=== PATIENT | male | born 1935 | race Asian ===

== ENCOUNTER 2018-01-04 16:09 | Emergency (ER) | payer OTHER ==
[2018-01-04] MEDS ORDERED: HYDROCODONE/APAP 5/325 MG TAB ONE (16:26)
[2018-01-04] MEDS ORDERED: IBUPROFEN 400 MG TAB ONE (16:29)
--- NOTE | 2018-01-04 17:42 | RAD REPORT ---
EXAM DESCRIPTION: RAD - Knee Left 3 View - 01/04/2018 5:27 pm CLINICAL HISTORY: Left knee pain FINDINGS: No fracture or dislocation is seen. Moderate osteoarthritis involves the medial compartment consisting of joint space narrowing and osteo phytes. The bones are osteoporotic.
--- NOTE | 2018-01-04 19:05 | ER ---
Nurse's Notes [facility] Name: Richard Hatch Age: 82 yrs Sex: Male : 1935 Arrival Date: 01/04/2018 Time: 16:11 Bed 15 Private MD: Diagnosis: Internal derangement of knee Presentation: 01/04 16:12 Presenting complaint: Patient states: L knee pain that began today. Only injury ss reported is after door fell onto affected leg yesterday. Transition of care: patient was not received from another setting of care. Onset of symptoms was January 04, 2018. Risk Assessment: Do you want to hurt yourself or someone else? Patient reports no desire to harm self or others. Initial Sepsis Screen: Does the patient meet any 2 criteria? No. Patient's initial sepsis screen is negative. Does the patient have a suspected source of infection? No. Patient's initial sepsis screen is negative. Care prior to arrival: None. 16:12 Method Of Arrival: EMS: [facility] ss 16:12 Acuity: JADEN 4 ss Historical: - Allergies: 16:13 No Known Allergies; ss - PMHx: 16:13 Hypertension; ss - Social history:: Smoking status: Patient/guardian denies using tobacco. - Ebola Screening: : No symptoms or risks identified at this time. Screenin:15 Abuse screen: Denies threats or abuse. Denies injuries from another. Nutritional kr2 screening: No deficits noted. Tuberculosis screening: No symptoms or risk factors identified. Fall Risk Fall in past 12 months (25 points). Assessment: 16:15 General: Appears in no apparent distress. uncomfortable, well groomed, well developed, kr2 well nourished, Behavior is calm, cooperative, appropriate for age. Pain: Complains of pain in left knee Pain currently is 6 out of 10 on a pain scale. Quality of pain is described as aching, tender, Pain began 1 day ago. Is continuous, Alleviated by nothing. Aggravated by increased activity, repositioning, weight bearing. Neuro: Level of Consciousness is awake, alert, obeys commands, Oriented to person, place, time, situation, Appropriate for age. Cardiovascular: Capillary refill < 3 seconds in bilateral fingers Patient's skin is warm and dry. Respiratory: Airway is patent Respiratory effort is even, unlabored, Respiratory pattern is regular, symmetrical. GI: Abdomen is flat, non-distended. : No signs and/or symptoms were reported regarding the genitourinary system. EENT: Oral mucosa is moist. Derm: Skin is intact, is healthy with good turgor, Skin is pink, warm \T\ dry. Musculoskeletal: Circulation, motion, and sensation intact. Range of motion: limited in left knee. 17:26 Reassessment: Patient appears in no apparent distress at this time. Patient and/or kr2 family updated on plan of care and expected duration. Pain level reassessed. Patient is alert, oriented x 3, equal unlabored respirations, skin warm/dry/pink. Patient states feeling better. 18:30 Reassessment: Patient appears in no apparent distress at this time. Patient and/or kr2 family updated on plan of care and expected duration. Pain level reassessed. Patient is alert, oriented x 3, equal unlabored respirations, skin warm/dry/pink. Patient states feeling better. 18:45 Reassessment: knee immobilizer placed by marine propulsion technician, crutches given, patient demonstrates kr2 proper use of crutches and immobilizer. 19:00 Reassessment: RECD REPORT FROM OLIVIA KELLER. 82YO AM P/W LEFT KNEE PAIN. ALL CURRENT ORDERS bp COMPLETED, D/C PENDING. 19:20 Reassessment: PT D/C HOME ON CRUTCHES, DX WITH ARTHRITIC PAIN. bp Vital Signs: 16:13 BP 148 / 78; Pulse 83; Resp 16; Pulse Ox 97% on R/A; Weight 72.57 kg; ss 16:21 Temp 97.8; kr2 17:25 BP 141 / 82; Pulse 71; Resp 16; Pulse Ox 98% on R/A; kr2 19:15 BP 145 / 81; Pulse 75; Resp 16; Pulse Ox 98% ; bp ED Course: 16:11 Patient arrived in ED. ss 16:13 Triage completed. ss 16:13 Arsenio Brooke PA is PHCP. jmm 16:13 Chauncey Ibarra MD is Attending Physician. jmm 16:13 Arm band placed on right wrist. ss 16:15 Patient has correct armband on for positive identification. Bed in low position. Call kr2 light in reach. Side rails up X 1. Pulse ox on. NIBP on. Door closed. Head of bed elevated. 16:21 Ovidio, Olivia, RN is Primary Nurse. kr2 17:28 Knee Left 3 View XRAY In Process Unspecified. EDMS 18:43 Crutch training done. Knee immobilizer applied on left knee. [facility] 19:04 Farhad Villaseñor MD is Referral Physician. [facility] 19:06 Primary Nurse role handed off by Olivia Nolan, ARIANNA 19:06 Dilan Luna, RN is Primary Nurse. bp 19:12 No provider procedures requiring assistance completed. Patient did not have IV access kr2 during this emergency room visit. Administered Medications: 16:28 Drug: Mobile 5 mg-325 mg 1 tabs Route: PO; kr2 17:27 Follow up: Response: No adverse reaction; Pain is decreased kr2 16:28 Drug: Motrin 800 mg Route: PO; kr2 17:27 Follow up: Response: No adverse reaction; Pain is decreased kr2 Outcome: 19:04 Discharge ordered by MD. [facility] 19:22 Discharged to home via wheelchair, with family. bp 19:22 Condition: stable 19:22 Discharge instructions given to patient, Instructed on discharge instructions, follow up and referral plans. medication usage, Demonstrated understanding of instructions, follow-up care, medications, Prescriptions given X 1. 19:24 Patient left the ED. bp Signatures: Dispatcher [employer] EDMS Arsenio Brooke PA PA jmm Smirch, Shelby, RN Kristal Aponte [facility] Dilan Luna, ARIANNA RN Olivia Nolan, ARIANNA RN kr2
--- NOTE | 2018-01-04 19:05 | EDPHYS ---
Physician Documentation [facility] Name: Richard Hatch Age: 82 yrs Sex: Male : 1935 Arrival Date: 01/04/2018 Time: 16:11 Bed 15 Private MD: ED Physician Chauncey Ibarra HPI: 01/04 16:21 This 82 yrs old Male presents to ER via EMS with complaints of Knee Pain. jmm 16:21 The patient presents with pain, that is chronic. The complaints affect the left knee. jmm Onset: The symptoms/episode began/occurred gradually, 2 day(s) ago. This is a 82 year old male with a history of htn that presents to the ED with left knee pain. Patient states he was working in his yard yesterday and also states he ran into a door. Patient states he has had progressively worsen left knee pain since. Patient denies fever. Patient states having similar pain in the past with a gout flare. . Historical: - Allergies: 16:13 No Known Allergies; ss - PMHx: 16:13 Hypertension; ss - Social history:: Smoking status: Patient/guardian denies using tobacco. - Ebola Screening: : No symptoms or risks identified at this time. ROS: 16:21 Constitutional: Negative for fever, chills, and weight loss. jmm 16:21 MS/extremity: Positive for pain, tenderness. 16:21 All other systems are negative. Exam: 16:21 Constitutional: The patient appears in no acute distress, alert, awake. jmm 16:26 Constitutional: This is a well developed, well nourished patient who is awake, alert, jmm and in no acute distress. 16:26 Neck: ROM/movement: is normal. 16:26 Cardiovascular: Rate: normal. 16:26 Respiratory: the patient does not display signs of respiratory distress, Respirations: normal. 16:26 Musculoskeletal/extremity: pain is elicited on rom of the left knee, patient is able to flex and extend knee, pain on mcmurrays, full dorsalis pedis pulse, compartments are soft, NVI. 16:26 Skin: Appearance: Color: normal in color. 16:26 Neuro: Orientation: is normal, Mentation: is normal, Memory: is normal. Vital Signs: 16:13 BP 148 / 78; Pulse 83; Resp 16; Pulse Ox 97% on R/A; Weight 72.57 kg; ss 16:21 Temp 97.8; kr2 17:25 BP 141 / 82; Pulse 71; Resp 16; Pulse Ox 98% on R/A; kr2 19:15 BP 145 / 81; Pulse 75; Resp 16; Pulse Ox 98% ; bp MDM: 16:[address] [facility] 16:28 Data reviewed: vital signs, nurses notes. [facility] 19:04 Counseling: I had a detailed discussion with the patient and/or guardian regarding: the [facility] historical points, exam findings, and any diagnostic results supporting the discharge/admit diagnosis, radiology results, the need for outpatient follow up, to return to the emergency department if symptoms worsen or persist or if there are any questions or concerns that arise at home. 19:05 Response to treatment: the patient's symptoms have markedly improved after treatment. [facility] 01/04 16:20 Order name: Knee Left 3 View XRAY; Complete Time: 17:55 [facility] 01/04 17:56 Order name: Knee Immobilizer; Complete Time: 18:42 [facility] 01/04 18:44 Order name: Crutches; Complete Time: 18:45 [facility] Administered Medications: 16:28 Drug: [place] 5 mg-325 mg 1 tabs Route: PO; kr2 17:27 Follow up: Response: No adverse reaction; Pain is decreased kr2 16:28 Drug: Motrin 800 mg Route: PO; kr2 17:27 Follow up: Response: No adverse reaction; Pain is decreased kr2 Disposition: 01/05 07:00 Co-signature as Attending Physician, Chauncey Ibarra MD. rn Disposition: 01/04/18 19:04 Discharged to Home. Impression: Internal derangement of knee. - Condition is Stable. - Discharge Instructions: Knee Pain. - Prescriptions for Ibuprofen 800 mg Oral Tablet - take 1 tablet by ORAL route every 8 hours As needed take with food; 30 tablet. - Medication Reconciliation Form, Thank You Letter, Antibiotic Education, Prescription Opioid Use form. - Follow up: Farhad Villaseñor MD; When: As needed; Reason: Continuance of care. Signatures: Dispatcher [employer] EDMS Arsenio Brooke PA PA [facility] Chauncey Ibarra MD MD rn Smirch, Shelby, RN RN Kristal Whittaker [facility] Dilan Luna RN RN Olivia Nolan RN RN kr2 Corrections: (The following items were deleted from the chart) 01/04 16:26 16:21 This is a 82 year old male with a history of htn that presents to the ED with jmm left knee pain. Patient states he was working in his yard yesterday and also states he ran into a door. Patient states he has had progressively worsen left knee pain since. Patient denies fever. . [facility] 19:24 19:04 01/04/2018 19:04 Discharged to Home. Impression: Internal derangement of knee. bp Condition is Stable. Forms are Medication Reconciliation Form, Thank You Letter, Antibiotic Education, Prescription Opioid Use. Follow up: Farhad Villaseñor; When: As needed; Reason: Continuance of care. ben
[2018-01-04 19:29] VITALS: TEMP 97.8
[2018-01-04 19:30] VITALS: O2SAT 98
[2018-01-04 19:31] VITALS: BP 145/81
== END 2018-01-04 19:24 | disposition home or self-care (01) ==
LOC: ER 16:09
DX: M23.92 Unspecified internal derangement of left knee (principal); I10 Essential (primary) hypertension
CPT/HCPCS: 99284

== ENCOUNTER 2018-06-18 09:49 | Day surgery (SDC) | payer OTHER ==
[2018-06-18] MEDS ORDERED: NA CHLORIDE 0.9% 1,000 ML ONE (10:06)
[2018-06-18] MEDS ORDERED: LIDOCAINE 1% MPF 5 ML VIAL ONE (12:05)
[2018-06-18] MEDS ORDERED: PROPOFOL 200 MG/20 ML VIAL IV ONE (12:05)
[2018-06-18 12:33] VITALS: BP 97/61; TEMP 97.6; O2SAT 99
--- NOTE | 2018-06-18 14:00 | ENDO RPT ---
[address], [address] EGD PROCEDURE REPORT EXAM DATE: 06/18/2018 PATIENT NAME: Richard Hatch MR#: [id number] BIRTHDATE: 1935 ATTENDING: Cameron Baca Dr STATUS: outpatient NURSING HOME ASSISTANT: Merced Arroyo, Miya Mantilla RN, and Dana Arroyo INDICATIONS: The patient is a 82 yr old Male here for an EGD due to dyspepsia PROCEDURE PERFORMED: EGD with biopsy MEDICATIONS: Per Anesthesia. TOPICAL ANESTHETIC: none CONSENT: The patient understands the risks and benefits of the procedure and understands that these risks include, but are not limited to: sedation, allergic reaction, infection, perforation and/or bleeding. Alternative means of evaluation and treatment include, among others: physical exam, x-rays, and/or surgical intervention. The patient elects to proceed with this endoscopic procedure. DESCRIPTION OF PROCEDURE: During intra-op preparation period all mechanical medical equipment was checked for proper function. Hand hygiene and appropriate measures for infection prevention was taken. Procedure, possible complications, and alternatives including but not limited to the possibility of bleeding, perforation, tear, infection, sepsis, need for surgery, need for blood transfusion, and anesthesia related complications were explained to the patient. After the risks, benefits and alternatives of the procedure were thoroughly explained, Informed consent was verified, confirmed and timeout was successfully executed by the treatment team. The patient was placed in the left lateral position. The patient was anesthetized with topical anesthesia. Through the anesthetized oropharyngeal area, the scope was passed without any difficulty. The EG-[id number] ([id number]) endoscope was introduced through the mouth and advanced to the second portion of the duodenum. Retroflexed views revealed a small hiatal hernia. The gastroscope was then slowly withdrawn and removed. LA Class B esophagitis was found in the lower esophagus. 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 With standard forceps, a biopsy was obtained and sent to pathology. A small hiatal hernia was found Mild gastritis was found in the antrum. Multiple biopsies were obtained and sent to pathology. A 1 cm ulcer with crater was found in the antrum. With standard forceps, a biopsy was obtained and sent to pathology. Duodenitis was found in the bulb of the duodenum. ADVERSE EVENTS: There were no complications. IMPRESSIONS: 1. LA Class B esophagitis in the lower esophagus 2. 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 Small hiatal hernia 4. Mild gastritis in the antrum, s/p biopsies 5. 1 cm ulcer with dark heme / crater in the antrum 6. Duodenitis in the bulb of the duodenum RECOMMENDATIONS: 1. await biopsy results 2. acid suppression therapy REPEAT EXAM: Return in 3 month(s) for EGD. Cameron Baca Dr eSigned: Cameron Baca Dr 06/18/2018 1:00 PM cc: Vivienne Pleitez CPT CODES: ICD9 CODES: PATIENT NAME: Richard Hatch MR#: [id number]
== END 2018-06-18 13:20 | disposition home or self-care (01) ==
LOC: OR 09:49
PROVIDERS: ATTEND Internal Medicine Gastroenterology
PROC: 0DB78ZX Excision of Stomach, Pylorus, Via Natural or Artificial Opening Endoscopic, Diagnostic (ICD-10-PCS; 2018-06-18)
PROC: 0DB68ZX Excision of Stomach, Via Natural or Artificial Opening Endoscopic, Diagnostic (ICD-10-PCS; 2018-06-18)
PROC: 0DB38ZX Excision of Lower Esophagus, Via Natural or Artificial Opening Endoscopic, Diagnostic (ICD-10-PCS; principal; 2018-06-18 11:45)
DX: K29.70 Gastritis, unspecified, without bleeding (principal); M19.90 Unspecified osteoarthritis, unspecified site; E11.9 Type 2 diabetes mellitus without complications; M10.9 Gout, unspecified; E78.5 Hyperlipidemia, unspecified; I10 Essential (primary) hypertension; Z86.711 Personal history of pulmonary embolism; K20.9 Esophagitis, unspecified; K22.70 Barrett's esophagus without dysplasia; K44.9 Diaphragmatic hernia without obstruction or gangrene; K29.80 Duodenitis without bleeding
CPT/HCPCS: 43239; 82962; 88305; 88312; 88313; J2704; J7030

== ENCOUNTER 2023-06-02 17:41 | Emergency (ER) | payer OTHER, SELFPAY ==
--- OUTSIDE RECORDS SUMMARY | 2023-06-02 17:44 | XMS REPORT | Continuity of Care Document ---
:1935 Author Organization [facility] t Address [address] [place] [id number] Care Team Providers Name Role Phone Sandra Pleitez Attending Clinician Unavailable Problems This patient has no known problems. Allergies, Adverse Reactions, Alerts This patient has no known allergies or adverse reactions. Medications This patient has no known medications. Procedures This patient has no known procedures. Encounters Start End Encounter Admission Attending Care Care Encounter Source Date/Time Date/Time Type Type Clinicians Facility Department ID 2021[facility]09[id number]36:03 Sandra [facility] Results This patient has no known results.
--- NOTE | 2023-06-02 19:25 | RAD REPORT ---
EXAM DESCRIPTION: RAD - Hand Left 3 View - 06/02/2023 7:17 pm CLINICAL HISTORY: Pain;Swelling COMPARISON: No comparisons FINDINGS: Diffuse osteopenia is seen. Moderate soft tissue swelling is evident. Moderate multi joint arthritic changes are noted. No acute fracture or dislocation seen.
--- NOTE | 2023-06-02 19:29 | ER ---
Nurse's Notes [facility] Name: Richard Hatch Age: 87 yrs Sex: Male : 1935 Arrival Date: 06/02/2023 Time: 17:41 Bed 16 Private MD: Diagnosis: Other specified arthritis Presentation: 06/02 17:51 Chief complaint: Patient states: carrying orange juice in a bag and his left hand ko1 swelled up. I had it wrapped too tight and i soaked it in ice water for 10 minutes. Coronavirus screen: At this time, the client does not indicate any symptoms associated with coronavirus-19. Ebola Screen: No symptoms or risks identified at this time. Initial Sepsis Screen: Does the patient meet any 2 criteria? No. Patient's initial sepsis screen is negative. Does the patient have a suspected source of infection? No. Patient's initial sepsis screen is negative. Risk Assessment: Do you want to hurt yourself or someone else? Patient reports no desire to harm self or others. Onset of symptoms was May 30, 2023. 17:51 Method Of Arrival: Wheelchair ko1 17:51 Acuity: JADEN 4 ko1 Triage Assessment: 17:53 General: Appears in no apparent distress. uncomfortable, Behavior is calm, cooperative, ko1 appropriate for age. Pain: Complains of pain in left hand. Historical: - Allergies: 17:53 No Known Allergies; ko1 - PMHx: 17:53 Atrial fibrillation; Hypertension; Diabetes mellitus; ko1 - Immunization history:: Adult Immunizations unknown. - Social history:: Smoking status: Patient/guardian denies using tobacco, but has a distant history of tobacco abuse. Screenin:09 [facility] ED Fall Risk Assessment (Adult) History of falling in the last 3 months, bp including since admission No falls in past 3 months (0 pts). Abuse screen: Denies threats or abuse. Denies injuries from another. Nutritional screening: No deficits noted. Tuberculosis screening: No symptoms or risk factors identified. Vital Signs: 17:51 BP 128 / 77; Pulse 77; Resp 16; Temp 97.6; Pulse Ox 100% ; Weight 72.5 kg; bp 20:09 BP 131 / 69; Pulse 75; Resp 16; Pulse Ox 99% ; bp ED Course: 17:44 Patient arrived in ED. mg5 17:52 Callaway, Lisa, [employer] snw 17:52 Agatha Foley MD is Attending Physician. snw 17:53 Triage completed. ko1 17:53 Arm band placed on right wrist. Patient placed in waiting room, Patient notified of ko1 wait time. 19:19 Hand Left 3 View XRAY In Process Unspecified. EDMS 19:20 Dilan Luna, RN is Primary Nurse. bp 20:09 Patient has correct armband on for positive identification. Adult w/ patient. Provided bp Education on: N/A. 20:09 No provider procedures requiring assistance completed. Patient did not have IV access bp during this emergency room visit. Administered Medications: 19:20 Drug: HYDROcodone-acetaminophen PO 5 mg-325 mg 1 tabs PO once Route: PO; bp 20:07 Follow up: Response: No adverse reaction bp 19:20 Drug: Colcrys PO 1.2 mg PO once Route: PO; bp 20:07 Follow up: Response: No adverse reaction bp Medication: 20:09 VIS not applicable for this client. bp Outcome: 19:29 Discharge ordered by . snw 20:09 Discharged to home via wheelchair, with family, bp 20:09 Condition: stable 20:09 Discharge instructions given to patient, family, Instructed on discharge instructions, follow up and referral plans. medication usage, Demonstrated understanding of instructions, follow-up care, medications, Prescriptions given X 1, 20:11 Patient left the ED. bp Signatures: Dispatcher [employer] EDMS Lisa Callaway FNP-C [employer]-[facility] Dilan Luna RN RN bp Sushma Brennan RN RN ko1 Syeda Lawrence mg5 Corrections: (The following items were deleted from the chart) 19:48 17:51 BP 128 / 77; Pulse 77bpm; Resp 16bpm; Pulse Ox 100%; Temp 97.6F; ko1 bp
--- NOTE | 2023-06-02 19:29 | EDPHYS ---
Physician Documentation [facility] Name: Richard Hatch Age: 87 yrs Sex: Male : 1935 Arrival Date: 06/02/2023 Time: 17:41 Bed 16 Private MD: ED Physician Agatha Foley HPI: 06/02 18:56 This 87 yrs old Male presents to ER via Wheelchair with complaints of Hand snw Swelling. 18:56 The patient or guardian reports pain, swelling. The complaints affect the PIP of left snw ring finger and PIP of left index finger. Onset: The symptoms/episode began/occurred acutely. Associated signs and symptoms: The patient has no apparent associated signs or symptoms. It is unknown whether or not the patient has had similar symptoms in the past. Historical: - Allergies: 17:53 No Known Allergies; ko1 - PMHx: 17:53 Atrial fibrillation; Hypertension; Diabetes mellitus; ko1 - Immunization history:: Adult Immunizations unknown. - Social history:: Smoking status: Patient/guardian denies using tobacco, but has a distant history of tobacco abuse. ROS: 18:55 Constitutional: Negative for fever, chills, and weight loss, Eyes: Negative for injury, snw pain, redness, and discharge, ENT: Negative for injury, pain, and discharge, Neck: Negative for injury, pain, and swelling, Cardiovascular: Negative for chest pain, palpitations, and edema, Respiratory: Negative for shortness of breath, cough, wheezing, and pleuritic chest pain, Abdomen/GI: Negative for abdominal pain, nausea, vomiting, diarrhea, and constipation, Back: Negative for injury and pain, : Negative for injury, bleeding, discharge, and swelling, Skin: Negative for injury, rash, and discoloration, Neuro: Negative for headache, weakness, numbness, tingling, and seizure, Psych: Negative for depression, anxiety, suicide ideation, homicidal ideation, and hallucinations, 18:55 MS/extremity: Positive for decreased range of motion, pain, swelling, tenderness, of the dorsal aspect of middle phalanx of left index finger and dorsal aspect of middle phalanx of left ring finger, Exam: 18:51 Constitutional: This is a well developed, well nourished patient who is awake, alert, snw and in no acute distress. Head/Face: Normocephalic, atraumatic. Eyes: Pupils equal round and reactive to light, extra-ocular motions intact. Lids and lashes normal. Conjunctiva and sclera are non-icteric and not injected. Cornea within normal limits. Periorbital areas with no swelling, redness, or edema. ENT: Nares patent. No nasal discharge, no septal abnormalities noted. Tympanic membranes are normal and external auditory canals are clear. Oropharynx with no redness, swelling, or masses, exudates, or evidence of obstruction, uvula midline. Mucous membranes moist. Neck: Trachea midline, no thyromegaly or masses palpated, and no cervical lymphadenopathy. Supple, full range of motion without nuchal rigidity, or vertebral point tenderness. No Meningismus. Chest/axilla: Normal chest wall appearance and motion. Nontender with no deformity. No lesions are appreciated. Cardiovascular: Regular rate and rhythm with a normal S1 and S2. No gallops, murmurs, or rubs. Normal PMI, no JVD. No pulse deficits. Respiratory: Lungs have equal breath sounds bilaterally, clear to auscultation and percussion. No rales, rhonchi or wheezes noted. No increased work of breathing, no retractions or nasal flaring. Abdomen/GI: Soft, non-tender, with normal bowel sounds. No distension or tympany. No guarding or rebound. No evidence of tenderness throughout. Back: No spinal tenderness. No costovertebral tenderness. Full range of motion. Skin: Warm, dry with normal turgor. Normal color with no rashes, no lesions, and no evidence of cellulitis. Neuro: Awake and alert, GCS 15, oriented to person, place, time, and situation. Cranial nerves II-XII grossly intact. Motor strength 5/5 in all extremities. Sensory grossly intact. Cerebellar exam normal. Normal gait. Psych: Awake, alert, with orientation to person, place and time. Behavior, mood, and affect are within normal limits. 18:51 Musculoskeletal/extremity: Extremities: grossly normal except: noted in the left hand: contusion, swelling, tenderness, ROM: limited active range of motion due to pain, limited passive range of motion due to pain, left 2nd finger PIJ with tenderness, edema, and warmth, Circulation is intact in all extremities. Sensation intact. Vital Signs: 17:51 BP 128 / 77; Pulse 77; Resp 16; Temp 97.6; Pulse Ox 100% ; Weight 72.5 kg; bp 20:09 BP 131 / 69; Pulse 75; Resp 16; Pulse Ox 99% ; bp MDM: 18:42 Patient medically screened. snw 18:57 Differential diagnosis: contusion, abrasion, tendonitis. Data reviewed: vital signs, snw nurses notes. I considered the following discharge prescriptions or medication management in the emergency department Medications were administered in the Emergency Department. See MAR. Historians other than the Patient: Family Member: grandchildren. Counseling: I had a detailed discussion with the patient and/or guardian regarding the historical points, exam findings, and any diagnostic results supporting the discharge/admit diagnosis, radiology results, the need for outpatient follow up, to return to the emergency department if symptoms worsen or persist or if there are any questions or concerns that arise at home. 06/02 18:51 Order name: Hand Left 3 View XRAY; Complete Time: 19:27 snw Administered Medications: 19:20 Drug: HYDROcodone-acetaminophen PO 5 mg-325 mg 1 tabs PO once Route: PO; bp 20:07 Follow up: Response: No adverse reaction bp 19:20 Drug: Colcrys PO 1.2 mg PO once Route: PO; bp 20:07 Follow up: Response: No adverse reaction bp Disposition Summary: 06/02/23 19:29 Discharge Ordered Notes: Location: Home snw Condition: Stable snw Diagnosis - Other specified arthritis snw Followup: snw - With: Emergency Department - When: As needed - Reason: Worsening of condition Followup: snw - With: Private Physician - When: 2 - 3 days - Reason: Recheck today's complaints, Continuance of care, Re-evaluation by your physician Discharge Instructions: - Discharge Summary Sheet snw - Arthritis snw - Osteoarthritis snw - Hand Pain snw Forms: - Medication Reconciliation Form snw - Thank You Letter snw - Antibiotic Education snw - Prescription Opioid Use snw - Patient Portal Instructions snw - Leadership Thank You Letter snw Prescriptions: - Mobic 7.5 mg Oral tablet - take 1 tablet ORAL route once daily As needed take with food; 20 tablet; snw Refills: 0, Product Selection Permitted Signatures: Dispatcher [employer] Lisa Goldberg FNP-C FNP-Csnw Dilan Luna, RN RN bp Sushma Brennan RN RN ko1 Corrections: (The following items were deleted from the chart) 19:14 18:19 Hand Right 3 View+RAD.RAD.BRZ ordered. EDMS EDMS
[2023-06-02] MEDS ORDERED: COLCHICINE 0.6 MG TAB ONE (19:42)
[2023-06-02] MEDS ORDERED: HYDROCODONE/APAP 5/325 MG TAB ONE (19:43)
[2023-06-02 20:17] VITALS: TEMP 97.6
[2023-06-02 20:18] VITALS: BP 131/69; O2SAT 99
== END 2023-06-02 20:11 | disposition home or self-care (01) ==
LOC: ER 17:41
DX: M13.842 Other specified arthritis, left hand (principal)
CPT/HCPCS: 99283

== ENCOUNTER 2024-05-01 14:42 | Emergency (ER) | payer OTHER ==
--- OUTSIDE RECORDS SUMMARY | 2024-05-01 14:45 | XMS REPORT | Continuity of Care Document ---
Author Name Unknown Address [address] [place] [address] [employer] Address [address] [place] [address] [address] [place] [address] Care Team Providers Care Mental Health Program Specialist Name Role Phone Sandra Pleitez Attending Clinician Unavailable Encounters Start Date/Time End Date/Time Encounter Type Admission Type Attending Clinicians Care Facility Care Department Encounter ID Source 2021-09-12 08:36:03 Outpatient Sandra Pleitez [facility] [id number] [facility]
[2024-05-01] MEDS ORDERED: NA CHLORIDE 0.9% 500 ML ONE ×3 (15:24→18:05)
[2024-05-01] MEDS ORDERED: NA CHLORIDE 0.9% 100 ML ONE (17:03)
--- NOTE | 2024-05-01 17:03 | RAD REPORT ---
EXAMINATION: ONE VIEW CHEST XR CLINICAL INDICATION: Male, 88 years old.,altered mental status TECHNIQUE: Frontal chest projection is submitted. Examination is limited by patient positioning and t echnique. COMPARISON: 08/04/2015 FINDINGS: The lungs are well inflated and clear, apart from bilateral midlung linear peripheral opacity suggest ing atelectasis or scarring. No pneumothorax or sizable effusion. The heart is normal in size. IMPRESSION: No acute intrathoracic abnormalities. Findings as above.
[2024-05-01] MEDS ORDERED: PIPERACIL/TAZO 3.375 GM VIAL IV ONE (17:04)
[2024-05-01 17:10] LABS: Specific Gravity 1.021 (1.005-1.030); Sqamous Epithelial <5 /HPF (None Seen); Urine Bacteria <20 /HPF (<20); Urine Bilirubin NEGATIVE (Negative); Urine Blood Negative (Negative); Urine Clarity Extremely Turbid (Clear); Urine Color Light-Yellow (Yellow); Urine Culture Reflex Order NOT NEEDED; Urine Glucose NEGATIVE (Negative); Urine Ketones TRACE (Negative); Urine Microscopic Reflex YN ORDER UMIC; Urine Mucus Slight /HPF (None Seen); Urine Nitrite NEGATIVE (Negative); Urine Protein TRACE (Negative); Urine RBC <5 /HPF (None Seen); Urine Urobilinogen Normal (Normal); Urine WBC <5 /HPF (<5)
[2024-05-01 17:13] LABS: Albumin 2.9 g/dL (3.4-5.0); Albumin/Globulin Ratio 0.6 (1.1-1.8); Anion Gap 21.9 mEq/L (5.0-15.0); Bilirubin Total 0.3 mg/dL (0.2-1.0); Globulin 4.6 g/dL (2.3-3.5); Protein, Total 7.5 g/dL (6.4-8.2); Troponin High Sensitivity 26.8 pg/mL (<58.9)
[2024-05-01 17:15] LABS: Absolute Lymphocytes (CBC) 0.6 K/uL (0.7-4.9); Absolute Monocytes 0.6 K/uL (0.1-1.3); Absolute Neutrophil 10.5 K/uL (1.8-8.0); Basophils % 0.2 % (0-1.3); Hematocrit 16.7 % (39.6-49.0); Lymphocytes % 5.4 % (15.3-44.8); MCH 27.1 pg (27.0-35.0); MCHC 30.8 g/dL (32.0-36.0); MCV 88.1 fL (80-100); MPV 7.1 fL (7.6-11.3); Monocytes % 5.2 % (3.3-12.3); Neutrophils % 89.2 % (41.7-73.7); Platelets 284 thou/uL (152-406); Red Cell Distribution Width 15.8 % (12.1-15.2)
[2024-05-01 17:20] LABS: Hemoglobin 5.1 g/dL (13.6-17.9)
[2024-05-01 17:22] LABS: Potassium 6.9 mEq/L (3.5-5.1)
[2024-05-01 17:23] LABS: PT Prothrombin Time 14.1 SECONDS (9.4-12.5); PTT, Activated Partial Thromb 30.1 SECONDS (24.3-36.9); Protime INR 1.27
[2024-05-01 17:27] LABS: Barbiturates NEGATIVE (NEGATIVE); Benzodiazepines NEGATIVE (NEGATIVE); Cocaine NEGATIVE (NEGATIVE); METHAMPHETAM NEGATIVE (NEGATIVE); Methadone NEGATIVE (NEGATIVE); Opiates NEGATIVE (NEGATIVE); Phencyclidine NEGATIVE (NEGATIVE); THC Cannibis NEGATIVE (NEGATIVE)
--- NOTE | 2024-05-01 18:01 | ER ---
Nurse's Notes [facility] Name: Richard Hatch Age: 88 yrs Sex: Male : 1935 Arrival Date: 05/01/2024 Time: 14:42 Bed 17 Private MD: Diagnosis: Anemia, unspecified;GI Bleed/ Gastrointestinal hemorrhage, unspecified;Hyperkalemia;Acute kidney failure, unspecified Presentation: 05/01 15:06 Chief complaint: EMS states: n/v/d most of today with recent dark stools. lowest BP for [facility] was 84/40. BGL 248. Coronavirus screen: At this time, the client does not indicate any symptoms associated with coronavirus-19. Ebola Screen: No symptoms or risks identified at this time. Initial Sepsis Screen: Does the patient meet any 2 criteria? Mean Arterial Pressure (MAP) < 65. Does the patient have a suspected source of infection? No. Patient's initial sepsis screen is negative. Risk Assessment: Do you want to hurt yourself or someone else? Patient reports no desire to harm self or others. Onset of symptoms was May 01, 2024. 15:06 Method Of Arrival: EMS: [facility] 15:06 Acuity: JADEN 2 kc6 Triage Assessment: 15:07 General: Appears in no apparent distress. uncomfortable, well groomed, well developed, kc6 Behavior is calm, cooperative, appropriate for age. EENT: No signs and/or symptoms were reported regarding the EENT system. Neuro: Level of Consciousness is awake, obeys commands, lethargic, Oriented to person, place, time, situation, Appropriate for age. Cardiovascular: Capillary refill < 3 seconds. Respiratory: Airway is patent Trachea midline Respiratory effort is even, unlabored, Respiratory pattern is regular, symmetrical. GI: Abdomen is round Pt is actively vomiting clear fluid, Bowel sounds present X 4 quads. Reports cramping, diarrhea, bloody stool, nausea, vomiting. : No signs and/or symptoms were reported regarding the genitourinary system. Derm: Skin is intact, is healthy with good turgor, Skin is dry, Skin is jaundiced, pale, Skin temperature is warm. Musculoskeletal: No signs and/or symptoms reported regarding the musculoskeletal system. Circulation, motion, and sensation intact. Capillary refill < 3 seconds, Range of motion: intact in all extremities. Historical: - Allergies: 15:07 No Known Allergies; kc6 - PMHx: 15:07 Atrial fibrillation; diabetes mellitus; Hypertension; kc6 - PSHx: 15:07 None; kc6 - Immunization history:: Adult Immunizations. - Infectious Disease History:: Denies. - Social history:: Smoking status: Patient denies any tobacco usage or history of. Screenin:[facility] ED Fall Risk Assessment (Adult) History of falling in the last 3 months, kc6 including since admission No falls in past 3 months (0 pts) Confusion or Disorientation No (0 pts) Intoxicated or Sedated No (0 pts) Impaired Gait No (0 pts) Mobility Assist Device Used No (0 pt) Altered Elimination No (0 pt) Score/Fall Risk Level 0 - 2 = Low Risk Oriented to surroundings. Abuse screen: Denies threats or abuse. Denies injuries from another. Nutritional screening: No deficits noted. Tuberculosis screening: No symptoms or risk factors identified. Assessment: 15:11 Reassessment: please see triage. 6 16:02 Reassessment: ARIANNA Barber at bedside attempting an US IV with labs. kc6 16:11 Reassessment: Patient appears in no apparent distress at this time. No changes from [facility] previously documented assessment. Patient and/or family updated on plan of care and expected duration. Pain level reassessed. Patient is alert, oriented x 3, equal unlabored respirations, skin warm/dry/pink. 17:25 Reassessment: Patient appears in no apparent distress at this time. No changes from [facility] previously documented assessment. Patient and/or family updated on plan of care and expected duration. Pain level reassessed. Patient is alert, oriented x 3, equal unlabored respirations, skin warm/dry/pink. 18:33 Reassessment: Patient appears in no apparent distress at this time. No changes from [facility] previously documented assessment. Patient and/or family updated on plan of care and expected duration. Pain level reassessed. Patient is alert, oriented x 3, equal unlabored respirations, skin warm/dry/pink. 19:00 General: Appears in no apparent distress. uncomfortable, Behavior is calm, cooperative. al5 Pain: Complains of pain in abdomen Pain currently is 5 out of 10 on a pain scale. Neuro: Level of Consciousness is awake, alert, obeys commands, Oriented to person, place, time, situation. Cardiovascular: Capillary refill < 3 seconds Patient's skin is warm and dry. Respiratory: Airway is patent Respiratory effort is even, unlabored, Respiratory pattern is regular, symmetrical. GI: Abdomen is round Abd is soft X 4 quads Abdomen is tender to palpation X 4 quads. Reports lower abdominal pain, upper abdominal pain, rectal bleeding, bloody stool. : No signs and/or symptoms were reported regarding the genitourinary system. Amezcua in place to gravity drainage clamped. EENT: No signs and/or symptoms were reported regarding the EENT system. Derm: Skin is intact, Skin is pale. Musculoskeletal: No signs and/or symptoms reported regarding the musculoskeletal system. 20:00 Reassessment: Patient appears in no apparent distress at this time. No changes from al5 previously documented assessment. Patient and/or family updated on plan of care and expected duration. Pain level reassessed. Patient is alert, oriented x 3, equal unlabored respirations, skin warm/dry/pink. 20:31 Reassessment: see blood transfusion record for vital signs. al5 21:00 Reassessment: Patient appears in no apparent distress at this time. No changes from al5 previously documented assessment. Patient and/or family updated on plan of care and expected duration. Pain level reassessed. Patient is alert, oriented x 3, equal unlabored respirations, skin warm/dry/pink. 21:23 Reassessment: [facility] here to transfer patient to [facility], report al5 called and given to ARIANNA rivas. 21:23 Reassessment: patient transferred with first unit of blood still infusing upon al5 transfer. arianna rivas notified and aware during report that only one unit has been in the process of transfusion and that he will need a second blood transfusion after first blood infusion is complete, nurse verbalized understanding. would not allow this nurse to put partially completed for order of transfusion of two units, charge nurse aware. Vital Signs: 15:06 BP 112 / 40; Pulse 84; Resp 18 S; Temp 97.9(O); Pulse Ox 100% on R/A; Weight 81.65 kg kc6 (R); Height 5 ft. 7 in. (R); 16:01 BP 98 / 40; Pulse 87; Resp 20 S; Pulse Ox 100% on R/A; kc6 16:15 BP 113 / 47; Pulse 90; Resp 20 S; Pulse Ox 100% on R/A; kc6 16:19 BP 111 / 39; Pulse 83; Resp 19 S; Pulse Ox 99% on R/A; kc6 16:30 BP 143 / 41; Pulse 90; Resp 18 S; Pulse Ox 100% on R/A; kc6 16:45 BP 105 / 50; Pulse 85; Resp 20 S; Pulse Ox 97% on R/A; kc6 17:15 BP 121 / 56; Pulse 90; Resp 20 S; Pulse Ox 97% on R/A; kc6 17:24 BP 121 / 41; Pulse 91; Resp 20 S; Pulse Ox 100% on R/A; kc6 18:12 BP 126 / 49; Pulse 73; Resp 19 S; Pulse Ox 99% on R/A; kc6 18:30 BP 128 / 53; Pulse 84; Resp 19 S; Pulse Ox 100% on Nebulizer Mask; kc6 18:45 BP 129 / 53; Pulse 93; Resp 19 S; Pulse Ox 99% on R/A; kc6 19:00 BP 151 / 44; Pulse 98; Resp 20 S; Pulse Ox 99% on R/A; kc6 19:15 BP 117 / 59; Pulse 92; Resp 21; Pulse Ox 98% on R/A; al5 19:30 BP 129 / 59; Pulse 97; Resp 22; Pulse Ox 98% on R/A; al5 20:00 BP 122 / 49; Pulse 92; Resp 21; Pulse Ox 98% on R/A; al5 20:15 BP 124 / 59; Pulse 96; Resp 18; Pulse Ox 99% on R/A; al5 15:06 Body Mass Index 28.19 (81.65 kg, 170.18 cm) kc6 ED Course: 15:05 Patient arrived in ED. kc6 15:07 Triage completed. kc6 15:07 Arm band placed on. kc6 15:08 Javon Fan PA is PHCP. cp 15:08 Javon Montes De Oca MD is Attending Physician. cp 15:10 Patient has correct armband on for positive identification. Placed in gown. Bed in low kc6 position. Call light in reach. Side rails up X2. Adult w/ patient. monitoring engineer on. Pulse ox on. NIBP on. Door closed. Noise minimized. Lights dimmed. Warm blanket given. Pillow given. 15:10 Patient maintains SpO2 saturation greater than 95% on room air. kc6 15:24 Attending Physician role handed off by Javon Montes De Oca MD sd2 15:24 Tana Quezada MD is Attending Physician. sd2 15:28 Melly Harrison RN is Primary Nurse. kc6 15:33 Javon Fan PA is PHCP. sd2 15:50 Chest Single View XRAY In Process Unspecified. EDMS 16:01 Missed attempt(s): 22 gauge in right forearm. Missed attempt(s): 18 gauge in left EJ. kc6 Missed attempt(s): 20 gauge in left EJ. 16:13 Accessed peripheral vein via ultrasound, utilizing dynamic ultrasound technique using ss 20G Nexia IV catheter ,sterile technique, per hospital protocol. Clean \T\ dry. Dressing intact. Good blood return. Flushes easily. 16:22 AMMONIA Sent. ss 16:22 Troponin High Sensitivity Sent. ss 16:22 CK Sent. ss 16:22 Blood Culture Adult (2) Sent. ss 16:22 CBC with Diff Sent. ss 16:22 CMP Sent. ss 16:23 Protime (+inr) Sent. ss 16:30 Inserted saline lock: 18 gauge in left EJ, using aseptic technique. ,using aseptic ss technique. Insertion by Dr. Tavon MD. Pt tolerated well. Blood collected. Flushed with 10 mL NS. 16:33 Amezcua cath inserted, using sterile technique, 16 Fr., by id, balloon inflated, to kc6 gravity drainage, clamped. urine specimen collected. returned clear yellow urine. Patient tolerated well. 17:24 Cleaned of incontinence. kc6 17:24 Served as a wind operations manager during rectal exam. kc6 17:43 Head C Spine Mpr Wo Con In Process Unspecified. EDMS 17:43 Chest Abd Pelvis Wo Con In Process Unspecified. EDMS 18:09 spoke with Cheri at the [facility]. bc6 18:30 Provided Education on: Blood Transfusion, Procedure Consent. kc6 19:00 Report given to Dorota Diego RN. kc6 19:00 Diet: Patient is NPO. kc6 19:15 Primary Nurse role handed off by Melly Harrison, ARIANNA al5 19:15 Dorota Brito, ARIANNA is Primary Nurse. al5 21:15 Patient transferred, IV remains in place. al5 05/02 02:[address] Vicky Irby accepted pt 2038 admin approval by Stacia Jerry called [facility] talked to Lisa. Administered Medications: 05/01 16:19 Drug: NS 0.9% IV 500 ml 500 ml IV at 1 bolus once; to be given as a bolus over 30 kc6 minutes Volume: 500 ml; Route: IV; Rate: 1 bolus; Site: right forearm; 17:23 Follow up: Response: No adverse reaction; IV Status: Completed infusion; IV Intake: kc6 500ml 17:23 Drug: NS 0.9% IV 500 ml IV at bolus once; to be given as a bolus over 30 minutes Route: kc6 IV; Rate: bolus; Site: right antecubital; 18:53 Follow up: Response: No adverse reaction; IV Status: Completed infusion; IV Intake: kc6 500ml 17:24 Drug: Piperacillin-Tazobactam IVPB 3.375 grams IVPB once over 60 mins; (mix in NS 100 kc6 mL) Route: IVPB; Infused Over: 60 mins; Site: right antecubital; 21:23 Follow up: Response: No adverse reaction; IV Status: Infusion continued upon transfer al5 18:07 Not Given (Duplicate Order): calcium chloride1 grams IVP once juan 18:11 Not Given (Duplicate Order): albuterol5 mg Inhalation once kc6 18:33 Drug: Albuterol Inhalation 2.5 mg Inhalation every 20 minutes x3 Route: Inhalation; kc6 19:23 Follow up: Response: No adverse reaction kc6 18:33 Drug: Albuterol Inhalation 2.5 mg Inhalation every 20 minutes x3 Route: Inhalation; kc6 18:33 Drug: Albuterol Inhalation 2.5 mg Inhalation every 20 minutes x3 Route: Inhalation; kc6 18:33 Drug: Calcium Gluconate IVPB 1 grams IVPB once over 15 mins; (mix in NS 100 mL) Route: kc6 IVPB; Infused Over: 15 mins; Site: right jugular; 19:23 Follow up: Response: No adverse reaction; IV Status: Completed infusion; IV Intake: kc6 100ml 18:53 Drug: Insulin Regular Human IVP 10 units IVP once {Co-Signature: tm6 (Oriana Sigala kc6 RN).} Route: IVP; Site: right jugular; 20:27 Follow up: Response: No adverse reaction; Blood sugar is lowered al5 18:53 Drug: Sodium Bicarbonate IVP 1 amp IVP once; (50 mL); equals 50 mEq Route: IVP; Site: kc6 right jugular; 19:23 Follow up: Response: No adverse reaction kc6 18:53 Drug: D50W IVP 25 ml IVP once; (0.5 amp) Route: IVP; Site: right jugular; kc6 19:24 Follow up: Response: No adverse reaction kc6 19:00 Drug: Pantoprazole IVP 80 mg IVP once Route: IVP; Site: right jugular; kc6 19:24 Follow up: Response: No adverse reaction kc6 19:54 Drug: Kayexalate PO 60 grams PO once Route: PO; al5 20:53 Follow up: Response: No adverse reaction al5 19:54 Drug: Furosemide IVP 60 mg IVP once; give over 2 minutes Route: IVP; Site: right al5 jugular; 20:52 Follow up: Response: No adverse reaction al5 Medication: 21:22 VIS not applicable for this client. al5 Point of Care Testing: Blood Glucose: 20:29 Blood Glucose: 227 mg/dL; al5 Ranges: Intake: 17:23 IV: 500ml; Total: 500ml. kc6 18:53 IV: 500ml; Total: 1000ml. kc6 19:23 IV: 100ml; Total: 1100ml. kc6 Outcome: 18:00 ER care complete, transfer ordered by . cp 21:23 Transferred by ground EMS to [facility], [place], ri5 21:23 Condition: stable 21:23 Instructed on the need for transfer, 22:03 Patient left the ED. al5 Signatures: Dispatcher [employer] EDMS Elizabeth Comer Shelby, RN RN ss Page, Corey, PA PA cp Dunlop, Stephanie, MD MD sd2 Campbell, Kaitlyn, RN RN kc6 Jewell Burrell Amanda, RN RN al5 Javon Montes De Oca MD, cha, Tawney RN tm6 Corrections: (The following items were deleted from the chart) 19:27 18:34 BP 128 / 53; Pulse 84bpm; Resp 19bpm; Spontaneous; Pulse Ox 100% Nebulizer Mask; kc6 kc6
--- NOTE | 2024-05-01 18:01 | EDPHYS ---
Physician Documentation [facility] Name: Richard Hatch Age: 88 yrs Sex: Male : 1935 Arrival Date: 05/01/2024 Time: 14:42 Bed 17 Private MD: ED Physician Tana Quezada HPI: 05/01 15:30 This 88 yrs old Male presents to ER via EMS with complaints of cp Nausea/Vomiting/Diarrhea. 15:30 The patient presents to the emergency department with diarrhea, that is intermittent. cp Onset: The symptoms/episode began/occurred today. Associated signs and symptoms: Pertinent positives: abdominal pain, blood in stool for past 1-2 weeks, altered mental status, Pertinent negatives: fever. Severity of symptoms: in the emergency department the symptoms are unchanged despite EMS interventions. 15:30 Unable to obtain HPI due to altered mental status, son providing HPI. cp Historical: - Allergies: 15:07 No Known Allergies; kc6 - PMHx: 15:07 Atrial fibrillation; diabetes mellitus; Hypertension; kc6 - PSHx: 15:07 None; kc6 - Immunization history:: Adult Immunizations. - Infectious Disease History:: Denies. - Social history:: Smoking status: Patient denies any tobacco usage or history of. ROS: 15:35 Constitutional: Negative for fever, cp 15:35 Cardiovascular: Negative for chest pain, cp 15:35 Respiratory: Negative for cough, wheezing, 15:35 Abdomen/GI: Positive for abdominal pain, diarrhea, rectal bleeding, 15:35 Neuro: Positive for altered mental status, weakness, 15:35 Unable to obtain ROS due to altered mental status, Exam: 15:25 ECG was reviewed by the Attending Physician. cp 15:35 Constitutional: The patient appears in no acute distress, non-diaphoretic, well cp developed, well nourished, obviously ill, 15:35 Head/Face: Normocephalic, atraumatic. cp 15:35 Eyes: Periorbital structures: appear normal, Conjunctiva: normal, no exudate, no injection, Sclera: no appreciated abnormality, Lids and lashes: appear normal, bilaterally, 15:35 ENT: External ear(s): are unremarkable, Nose: is normal, Mouth: Lips: dry, Oral mucosa: dry, Posterior pharynx: Airway: no evidence of obstruction, patent, 15:35 Neck: ROM/movement: is normal, is supple, without pain, no range of motions limitations, 15:35 Chest/axilla: Inspection: normal, Palpation: is normal, no crepitus, no tenderness, 15:35 Cardiovascular: Rate: normal, Rhythm: irregular, Edema: ankle edema, that is mild, JVD: is not appreciated, 15:35 Respiratory: the patient does not display signs of respiratory distress, Respirations: normal, no use of accessory muscles, no retractions, labored breathing, is not present, Breath sounds: are clear throughout, no decreased breath sounds, no stridor, no wheezing, 15:35 Abdomen/GI: Inspection: abdomen appears normal, Bowel sounds: active, all quadrants, Palpation: soft, in all quadrants, moderate abdominal tenderness, in all quadrants, Rectal exam: bloody BM observed in ED. 15:35 Skin: Appearance: Color: jaundiced, cellulitis, is not appreciated, no rash present. 15:35 Neuro: Orientation: to person, Mentation: confused, sleepy, Motor: moves all fours, no focal deficits, Vital Signs: 15:06 BP 112 / 40; Pulse 84; Resp 18 S; Temp 97.9(O); Pulse Ox 100% on R/A; Weight 81.65 kg kc6 (R); Height 5 ft. 7 in. (R); 16:01 BP 98 / 40; Pulse 87; Resp 20 S; Pulse Ox 100% on R/A; kc6 16:15 BP 113 / 47; Pulse 90; Resp 20 S; Pulse Ox 100% on R/A; kc6 16:19 BP 111 / 39; Pulse 83; Resp 19 S; Pulse Ox 99% on R/A; kc6 16:30 BP 143 / 41; Pulse 90; Resp 18 S; Pulse Ox 100% on R/A; kc6 16:45 BP 105 / 50; Pulse 85; Resp 20 S; Pulse Ox 97% on R/A; kc6 17:15 BP 121 / 56; Pulse 90; Resp 20 S; Pulse Ox 97% on R/A; kc6 17:24 BP 121 / 41; Pulse 91; Resp 20 S; Pulse Ox 100% on R/A; kc6 18:12 BP 126 / 49; Pulse 73; Resp 19 S; Pulse Ox 99% on R/A; kc6 18:30 BP 128 / 53; Pulse 84; Resp 19 S; Pulse Ox 100% on Nebulizer Mask; kc6 18:45 BP 129 / 53; Pulse 93; Resp 19 S; Pulse Ox 99% on R/A; kc6 19:00 BP 151 / 44; Pulse 98; Resp 20 S; Pulse Ox 99% on R/A; kc6 19:15 BP 117 / 59; Pulse 92; Resp 21; Pulse Ox 98% on R/A; al5 19:30 BP 129 / 59; Pulse 97; Resp 22; Pulse Ox 98% on R/A; al5 20:00 BP 122 / 49; Pulse 92; Resp 21; Pulse Ox 98% on R/A; al5 20:15 BP 124 / 59; Pulse 96; Resp 18; Pulse Ox 99% on R/A; al5 15:06 Body Mass Index 28.19 (81.65 kg, 170.18 cm) kc6 Procedures: 19:07 Peripheral line: by aseptic technique a peripheral line was placed in the right juan external jugular vein. MDM: 15:08 Medical Screening Exam initiated cp 18:35 Data reviewed: vital signs, nurses notes, lab test result(s), EKG, radiologic studies, cp CT scan, plain films, I have discussed the patient's presentation/case with the attending Emergency Department Physician; and as a result, I will transfer patient. 18:35 I considered the following discharge prescriptions or medication management in the emergency department Medications were administered in the Emergency Department. See MAR. Independent interpretation of the following test(s) in the Emergency Department EKG: See my EKG interpretation above. Historians other than the Patient: Daughter/Son: son provides HPI. Care significantly affected by the following chronic conditions: Diabetes, Hypertension. Counseling: I had a detailed discussion with the patient and/or guardian regarding the historical points, exam findings, and any diagnostic results supporting the discharge/admit diagnosis, lab results, radiology results, the need to transfer to another facility, for higher level of care. Response to treatment: the patient's symptoms have markedly improved after treatment. 18:50 ED course: consult with clinical specialist at [facility] who will aceept patient as cp transfer. 05/01 16:44 Order name: Type And Screen cp 05/01 17:50 Interpretation: Reviewed. cp 05/01 15:20 Order name: Blood Culture Adult (2) cp 05/01 15:20 Order name: CBC with Diff; Complete Time: 17:26 cp 05/01 17:27 Interpretation: Normal except: WBC 11.80; RBC 1.90; HGB 5.1; HCT 16.7; MCHC 30.8; RDW cp 15.8; MPV 7.1; LIDIA% 89.2; LYM% 5.4; NEUT A 10.5; LYMA 0.6. 05/01 15:20 Order name: CMP; Complete Time: 17:26 cp 05/01 17:27 Interpretation: Normal except: NA 133; K 6.9; CO2 15; ANION GAP 21.9; GLUC 263; BUN cp 113; CRE 3.71; GFR 15; ALB 2.9; GLOB 4.6; A/G 0.6. 05/01 15:20 Order name: Lactate w/ 2H reflex if indic.; Complete Time: 16:53 cp 05/01 16:53 Interpretation: Reviewed. 05/01 15:20 Order name: Protime (+inr); Complete Time: 17:26 cp 05/01 17:50 Interpretation: Reviewed. cp 05/01 15:20 Order name: Ptt, Activated; Complete Time: 17:26 cp 05/01 18:30 Interpretation: Reviewed. 05/01 15:20 Order name: Urinalysis w/ reflexes; Complete Time: 17:26 cp 05/01 17:51 Interpretation: Normal except: [facility] Extremely Turbid; UKET TRACE; UPROT TRACE; HYAL cp 5-10. 05/01 15:20 Order name: Urine Culture cp 05/01 15:20 Order name: CK; Complete Time: 17:26 cp 05/01 15:20 Order name: Troponin High Sensitivity; Complete Time: 17:26 cp 05/01 15:20 Order name: AMMONIA; Complete Time: 16:53 cp 05/01 15:20 Order name: UDS; Complete Time: 17:30 cp 05/01 16:51 Order name: Ova And Parasites cp 05/01 16:51 Order name: Rotavirus Antigen; Complete Time: 18:28 cp 05/01 18:28 Interpretation: Reviewed. 05/01 16:51 Order name: Stool Culture cp 05/01 16:51 Order name: CDIFF cp 05/01 17:31 Order name: Packed RBC Leukored EDSC 05/01 18:46 Order name: ABG 05/01 18:51 Order name: Ghost Lactate-NO COLLECT Timer EDSC 05/01 20:42 Order name: Glucose, Ancillary Testing EDSC 05/01 15:20 Order name: Chest Single View XRAY; Complete Time: 17:26 cp 05/01 18:31 Interpretation: Report review. 05/01 17:39 Order name: Head C Spine Mpr Wo Con; Complete Time: 18:28 EDMS 05/01 18:30 Interpretation: Report reviewed. 05/01 17:40 Order name: Chest Abd Pelvis Wo Con; Complete Time: 18:28 EDMS 05/01 18:29 Interpretation: Report reviewed. 05/01 15:20 Order name: EKG; Complete Time: 15:20 05/01 15:20 Order name: Accucheck; Complete Time: 16:19 05/01 15:20 Order name: Cardiac monitoring; Complete Time: 15:28 05/01 15:20 Order name: EKG - Nurse/Tech; Complete Time: 15:28 05/01 15:20 Order name: IV Saline Lock - Large Bore; Complete Time: 16:19 05/01 15:20 Order name: Labs collected and sent; Complete Time: 16:19 05/01 15:20 Order name: O2 Per Protocol; Complete Time: 15:28 05/01 15:20 Order name: O2 Sat Monitoring; Complete Time: 15:28 05/01 15:20 Order name: Vital Signs; Complete Time: 15:28 05/01 15:20 Order name: Amezcua; Complete Time: 16:33 05/01 16:29 Order name: Labs - recollect needed: purple, blue; Complete Time: 17:00 bc6 05/01 17:26 Order name: Transfuse: 2 units blood; Complete Time: 22:05 cp EC:25 Rate is 83 beats/min. Rhythm is irregular. QRS interval is normal. QT interval is cp prolonged. T waves are Inverted in lead aVR. Interpreted by me. Reviewed by me. Administered Medications: 16:19 Drug: NS 0.9% IV 500 ml 500 ml IV at 1 bolus once; to be given as a bolus over 30 kc6 minutes Volume: 500 ml; Route: IV; Rate: 1 bolus; Site: right forearm; 17:23 Follow up: Response: No adverse reaction; IV Status: Completed infusion; IV Intake: kc6 500ml 17:23 Drug: NS 0.9% IV 500 ml IV at bolus once; to be given as a bolus over 30 minutes Route: kc6 IV; Rate: bolus; Site: right antecubital; 18:53 Follow up: Response: No adverse reaction; IV Status: Completed infusion; IV Intake: kc6 500ml 17:24 Drug: Piperacillin-Tazobactam IVPB 3.375 grams IVPB once over 60 mins; (mix in NS 100 kc6 mL) Route: IVPB; Infused Over: 60 mins; Site: right antecubital; 21:23 Follow up: Response: No adverse reaction; IV Status: Infusion continued upon transfer al5 18:07 Not Given (Duplicate Order): calcium chloride1 grams IVP once juan 18:11 Not Given (Duplicate Order): albuterol5 mg Inhalation once kc6 18:33 Drug: Albuterol Inhalation 2.5 mg Inhalation every 20 minutes x3 Route: Inhalation; kc6 19:23 Follow up: Response: No adverse reaction kc6 18:33 Drug: Albuterol Inhalation 2.5 mg Inhalation every 20 minutes x3 Route: Inhalation; kc6 18:33 Drug: Albuterol Inhalation 2.5 mg Inhalation every 20 minutes x3 Route: Inhalation; kc6 18:33 Drug: Calcium Gluconate IVPB 1 grams IVPB once over 15 mins; (mix in NS 100 mL) Route: kc6 IVPB; Infused Over: 15 mins; Site: right jugular; 19:23 Follow up: Response: No adverse reaction; IV Status: Completed infusion; IV Intake: kc6 100ml 18:53 Drug: Insulin Regular Human IVP 10 units IVP once {Co-Signature: tm6 (Oriana Sigala6 RN).} Route: IVP; Site: right jugular; 20:27 Follow up: Response: No adverse reaction; Blood sugar is lowered al5 18:53 Drug: Sodium Bicarbonate IVP 1 amp IVP once; (50 mL); equals 50 mEq Route: IVP; Site: kc6 right jugular; 19:23 Follow up: Response: No adverse reaction kc6 18:53 Drug: D50W IVP 25 ml IVP once; (0.5 amp) Route: IVP; Site: right jugular; kc6 19:24 Follow up: Response: No adverse reaction kc6 19:00 Drug: Pantoprazole IVP 80 mg IVP once Route: IVP; Site: right jugular; kc6 19:24 Follow up: Response: No adverse reaction kc6 19:54 Drug: Kayexalate PO 60 grams PO once Route: PO; al5 20:53 Follow up: Response: No adverse reaction al5 19:54 Drug: Furosemide IVP 60 mg IVP once; give over 2 minutes Route: IVP; Site: right al5 jugular; 20:52 Follow up: Response: No adverse reaction al5 Point of Care Testing: Blood Glucose: 20:29 Blood Glucose: 227 mg/dL; al5 Ranges: Critical Glucose Levels:Adult <50 mg/dl or >400 mg/dl <40 mg/dl or >180 mg/dl Disposition: 05/02 20:28 Chart complete. cp Disposition Summary: 05/01/24 18:00 Transfer Ordered Notes: Transfer Location: [facility] cp Reason: Higher level of care cp Condition: Serious cp Problem: new cp Symptoms: have improved cp Accepting Physician: doctor(05/01/24 22:03) al5 Diagnosis - Anemia, unspecified cp - GI Bleed/ Gastrointestinal hemorrhage, unspecified cp - Hyperkalemia cp - Acute kidney failure, unspecified cp Forms: - Medication Reconciliation Form cp - SBAR form cp Critical care time excluding procedures: 20:28 Critical care time: Bedside Care: 10 minutes, Consultation: 25 minutes, Family cp Intervention: 5 minutes. Total time: 40 minutes Signatures: Dispatcher [employer] EDJavon Mohan MD MD cha Blanchard, Shelby, RN RN Javon Corbin PA PA cp Melly Harrison RN RN kc6 Jewell Burrell6 Dorota Brito RN RN al5 Oriana Sigala RN tm6 Corrections: (The following items were deleted from the chart) 05/01 15:20 15:20 BLOOD CULTURE*+BA.LAB.BRZ ordered. EDMS EDMS 15:20 15:20 CBC+H.LAB.BRZ ordered. EDMS EDMS 15:20 15:20 COMPREHENSIVE METABOLIC PANEL+C.LAB.BRZ ordered. EDMS EDMS 15:20 15:20 LACTATE+C.LAB.BRZ ordered. EDMS EDMS 15:20 15:20 PROTIME (+INR)+COAG.LAB.BRZ ordered. EDMS EDMS 15:20 15:20 PTT, ACTIVATED+COAG.LAB.BRZ ordered. EDMS EDMS 15:20 15:20 Urinalysis+U.LAB.BRZ ordered. EDMS EDMS 15:20 15:20 Urine Culture+BA.LAB.BRZ ordered. EDMS EDMS 15:20 15:20 CREATINE PHOSPHOKINASE+C.LAB.BRZ ordered. EDMS EDMS 15:20 15:20 Troponin High Sensitivity+C.LAB.BRZ ordered. EDMS EDMS 15:20 15:20 AMMONIA+C.LAB.BRZ ordered. EDMS EDMS 15:20 15:20 URINE DRUG SCREEN+UC.LAB.BRZ ordered. EDMS EDMS 16:11 16:11 Head Brain Wo Cont+CT.RAD.BRZ ordered. EDMS EDMS 16:44 16:44 TYPE AND SCREEN+BB.LAB.BRZ ordered. EDMS EDMS 16:52 16:52 Ova and Parasites+MR.LAB.BRZ ordered. EDMS EDMS 16:52 16:52 Rotavirus Antigen+BA.LAB.BRZ ordered. EDMS EDMS 16:52 16:52 Stool Culture+BA.LAB.BRZ ordered. EDMS EDMS 16:52 16:52 C.difficile GDH Ag \T\ Toxin AB+LAB.BRZ ordered. EDMS EDMS 17:40 16:54 Chest Abdomen Pelvis W Con+CT.RAD.BRZ ordered. EDMS EDMS 22:03 18:00 doctor cp al5
[2024-05-01] MEDS ORDERED: ALBUTEROL 2.5 MG/3 ML NEB SOL ONE ×2 (18:03→18:15)
[2024-05-01] MEDS ORDERED: INSULIN REGULAR (HUMAN) 100 UNIT/ML ONE (18:03)
[2024-05-01] MEDS ORDERED: Calcium Chloride 10% INJ SYR IV ONE (18:04)
[2024-05-01] MEDS ORDERED: CALCIUM GLUCONATE 1 GM IVPB 1 GM/50 ML BAG IV ONE (18:15)
[2024-05-01] MEDS ORDERED: D50W 25 GM/50 ML SYRINGE IV ONE (18:15)
--- NOTE | 2024-05-01 18:20 | RAD REPORT ---
EXAM: CT CHEST, ABDOMEN AND PELVIS WITHOUT CONTRAST CLINICAL INDICATION: Male, 88 years old. [facility] MAIN weakness, bloody diarrhea Bed Name: 17 TECHNIQUE: CT chest, abdomen and pelvis was performed, without IV contrast, as per department protoco l. Axial, sagittal and coronal reconstructions were obtained. One or more of the following dose reduction techniques were used: Automated exposure control, adjustment of the mA and/or kV according to the patient size, and/or iterative reconstruction. Unless otherwise specified, incidental findings do not require dedicated imaging follow-up. COMPARISON: 05/28/2018 FINDINGS: The lack of intravenous contrast limits the sensitivity of this exam for evaluation of solid visceral organs, vascular structures, and retroperitoneum. Chest: LOWER NECK/CHEST WALL: Visualized thyroid gland and soft tissues are normal. LUNGS AND AIRWAYS: Airways are clear. Central platelike atelectasis or scarring bilaterally. Mosaic g roundglass opacities bilaterally, central predominant, may relate to under aeration. No nodules. PLEURA: No pleural effusion. No pneumothorax. Hemidiaphragms are normally positioned. MEDIASTINUM AND LYMPH NODES: No mediastinal mass or fluid collection. Normal size mediastinal, hilar, and axillary lymph nodes. Patulous appearance of the upper esophagus THORACIC AORTA: Normal caliber and configuration. PULMONARY ARTERIES: Normal caliber. HEART: Unremarkable. Abdomen/Pelvis LIVER: Normal in size and contour. No focal lesion. GALLBLADDER/BILE DUCTS: No biliary ductal dilatation. PANCREAS: No mass, ductal dilation, or jarrod-pancreatic fluid. SPLEEN: Normal size. No focal lesion. ADRENALS: Normal; no mass. KIDNEYS AND URETERS: Normal size and contour. No hydronephrosis. 4 mm calculus at the right lower sveta e GASTROINTESTINAL TRACT: Stomach is non-dilated. Small bowel has normal course and caliber. Mild wall thickening and adjacent fat stranding along the ascending colon and hepatic flexure. PERITONEUM: No free fluid. LYMPH NODES: No lymphadenopathy. ABDOMINAL AORTA AND OTHER VESSELS: Normal caliber aorta and IVC. URINARY BLADDER: Decompressed with Amezcua catheter in place.. REPRODUCTIVE ORGANS: No pathologic process. MUSCULOSKELETAL: No acute or suspicious osseous abnormality. ADDITIONAL FINDINGS: None IMPRESSION: Mosaic groundglass opacities in the central lungs bilaterally, may reflect sequelae of hypoventilatio n, less likely interstitial pneumonitis. Nonobstructing right lower renal pole 4 mm calculus. Mild wall thickening and adjacent fat stranding along the ascending colon and hepatic flexure, sugges ting segmental inflammatory colitis.
--- NOTE | 2024-05-01 18:24 | RAD REPORT ---
EXAM: CT brain without contrast HISTORY: MENTAL STATUS CHANGE COMPARISON: None TECHNIQUE: Multiple contiguous axial images were obtained and a CT of the brain without contrast. Sag ittal and coronal reformats were performed. FINDINGS: Images are present within the jacket of the accompanying chest, abdomen, and pelvis CT of the same da y. No evidence of hydrocephalus, intracranial hemorrhage, or extra-axial fluid collection. Mild brain atrophy with mild periventricular and deep white matter chronic microvascular ischemic ch anges present. The calvarium is intact. The visualized paranasal sinuses and mastoid air cells are essentially clear . IMPRESSION: No evidence of acute intracranial abnormality. EXAM: CT of the cervical spine without contrast HISTORY: MENTAL STATUS CHANGE COMPARISON: None TECHNIQUE: Multiple contiguous axial images were obtained in a CT of the cervical spine without contr ast. Sagittal and coronal reformats were performed. FINDINGS: The vertebral bodies demonstrate normal height and alignment. No evidence of acute fracture or subluxation.. Multilevel [id number] degenerative changes, contributing to up to moderate bilateral neural foraminal narrowing at C4-5. Suspected sequelae of prior fusion with partial ankylos is across C5-6 and C6-7. No prevertebral soft tissue swelling is seen. The posterior facets are well aligned. Normal alignment of the skull base with the cervical spine is seen. The lung apices are unremarkable. IMPRESSION: No evidence of acute osseous abnormality of the cervical spine.
[2024-05-01] MEDS ORDERED: PANTOPRAZOLE 40 MG INJ ONE (18:28)
[2024-05-01] MEDS ORDERED: SOD POLYSTYREN SUL 15 GM/60 ML UCUP ONE (19:21)
[2024-05-01] MEDS ORDERED: FUROSEMIDE 20 MG/ 2ML VIAL ONE (19:22)
[2024-05-01 19:23] LABS: Blood O2 Saturation 96.7 % (92-98.5)
[2024-05-01] MEDS ORDERED: FUROSEMIDE 40 MG/4 ML VIAL ONE (19:23)
[2024-05-01 19:24] LABS: Arterial Blood Carboxyhemoglob 1.6 % (0-1.5); Blood Gas Oxyhemoglobin 93.1 % (94-97); Blood Gas THB 5.2 g/dl (12-18)
[2024-05-01 23:32] LABS: C.diff Antigen/Toxin Ag neg : Tox neg (NEG : NEG); CDIFF INTERNAL NEG CONTROL White Background (WHITE BKGD); STOOL CONSISTENCY Liquid/Semi-Solid
[2024-05-02 06:11] VITALS: TEMP 97.9
[2024-05-02 06:28] VITALS: BP 124/59; O2SAT 99
--- NOTE | 2024-05-02 14:13 | EKG ---
Test Date: 2024-05-01 Test Time: 15:20:34 Sales Enablement Manager: DORIS MEASUREMENT RESULTS: Intervals: Rate: 83 GA: QRSD: 92 QT: 410 QTc: 481 [place]: P: GA: QRS: 100 T: 69 INTERPRETIVE STATEMENTS: Atrial flutter with variable AV block Prolonged QT Abnormal ECG Compared to ECG 12/19/2017 10:45:06 Prolonged QT interval now present Atrial fibrillation no longer present Electronically Signed On 05-02-24 14:11:21 CDT by Sachin Smith
== END 2024-05-01 22:03 | disposition short-term general hospital (02) ==
LOC: ER 14:42
PROC: 30233N1 Transfusion of Nonautologous Red Blood Cells into Peripheral Vein, Percutaneous Approach (ICD-10-PCS; principal; 2024-05-01)
DX: D64.9 Anemia, unspecified (principal); E87.5 Hyperkalemia; N17.9 Acute kidney failure, unspecified; E11.9 Type 2 diabetes mellitus without complications; I10 Essential (primary) hypertension
CPT/HCPCS: 93005; 87040 ×2; 87045; 85025; 81001; 87086; 36415; 82140; 86900; 86850; 82550; 87177; 85610; 86901; 82947; 87046; 83605; 85730; 87209; 86920 ×2; 87324; 84484; 80053; 80307; 87425; 70450; 71250; 72125; 74176; 71045; 82805; 51702; 99285; 36600; 36430; J0612; J1940 ×2; J2543; J7613 ×2; J2470; P9016; J7050; J7040 ×2; 87088

== ENCOUNTER 2024-05-25 08:08 | Inpatient (IN) | payer OTHER ==
[2024-05-25] MEDS ORDERED: NA CHLORIDE 0.9% 500 ML ONE (08:18)
--- NOTE | 2024-05-25 08:58 | RAD REPORT ---
Procedure: Chest Single View HISTORY: Shortness of breath COMPARISON: April 2024 FINDINGS: Mild opacity medial right mid to lower lung. Mild additional chronic interstitial opacities within the lungs. No significant pleural effusion noted. The heart is mildly enlarged IMPRESSION: Mild medial opacity mid to lower right lung could represent atelectasis or infiltrate
[2024-05-25 09:04] LABS: Absolute Basophils 0.1 K/uL (0-0.5); Absolute Lymphocytes (CBC) 0.3 K/uL (0.7-4.9); Absolute Monocytes 0.8 K/uL (0.1-1.3); Absolute Neutrophil 24.8 K/uL (1.8-8.0); Basophils % 0.3 % (0-1.3); Eosinophils % 0.1 % (0-4.4); Hemoglobin 7.8 g/dL (13.6-17.9); MCH 26.3 pg (27.0-35.0); MCV 87.6 fL (80-100); MPV 6.8 fL (7.6-11.3); Monocytes % 2.9 % (3.3-12.3); Neutrophils % 95.7 % (41.7-73.7); Nucleated Red Blood Cells % 0.2 % (0-0); Platelets 373 thou/uL (152-406); RBC Red Blood Cell Count 2.97 M/uL (4.33-5.43); Red Cell Distribution Width 19.1 % (12.1-15.2)
[2024-05-25 09:09] LABS: PT Prothrombin Time 15.9 SECONDS (9.4-12.5); PTT, Activated Partial Thromb 29.8 SECONDS (24.3-36.9); Protime INR 1.43
[2024-05-25 09:14] LABS: Calcium Oxalate Crystals- Ur Few /HPF (None Seen); Sqamous Epithelial None Seen /HPF (None Seen); Urine Bacteria 20-50 /HPF (<20); Urine Culture Reflex Order REFLEXED; Urine Micro Reflex YN NO BILL MICROSCOPIC; Urine Mucus 1+ /HPF (None Seen); Urine RBC >50 /HPF (None Seen); Urine WBC >50 /HPF (<5); Urine Yeast (Budding) Many /HPF (None Seen)
--- NOTE | 2024-05-25 09:21 | RAD REPORT ---
EXAM: CT brain without contrast HISTORY: Headache COMPARISON: 2010 TECHNIQUE: Multiple contiguous axial images were obtained and a CT of the brain without contrast.. Sagittal and coronal reconstruction performed. Automated exposure control, adjustment of the mA and/or kV according to patient size, and/or iterative reconstruction. 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 No fluid within the visualized sinuses or mastoids noted.. Metallic densities right orbit IMPRESSION: No acute intracranial abnormality noted. If the patient's symptoms persist MRI of the brain would be recommended.
[2024-05-25 09:23] LABS: Albumin 1.8 g/dL (3.4-5.0); Albumin/Globulin Ratio 0.3 (1.1-1.8); Anion Gap 18.3 mEq/L (5.0-15.0); Bilirubin Total 0.6 mg/dL (0.2-1.0); Globulin 5.8 g/dL (2.3-3.5); Potassium 5.3 mEq/L (3.5-5.1); Protein, Total 7.6 g/dL (6.4-8.2)
[2024-05-25 09:32] LABS: Anisocytosis 1+; Band Neutrophils 10 % (0-1); Blood Morphology Comment NOTED (NOT SEEN); Differential Total Cells Count 100; Dohle Bodies PRESENT; Hypochromasia 1+; Lymphocytes 1 % (15-42); Monocytes 4 % (0-10); Platelet Estimate ADEQ; Poikilocytosis 1+; Polychromasia 1+; Segmented Neutrophils 85 % (40-80)
[2024-05-25] MEDS ORDERED: AZITHROMYCIN 500 MG INJ IVPB ONE (09:32)
[2024-05-25] MEDS ORDERED: NA CHLORIDE 0.9% 250 ML ONE (09:32)
[2024-05-25] MEDS ORDERED: NA CHLORIDE 0.9% 2,000 ML ONE (09:32)
[2024-05-25] MEDS ORDERED: CEFTRIAXONE 1000 MG/VIAL ONE (09:32)
[2024-05-25 09:33] LABS: Burr Cells 1+
--- NOTE | 2024-05-25 10:47 | RAD REPORT ---
EXAMINATION: Stone Protocol CLINICAL INDICATION: hematuria, hypotensive TECHNIQUE: CT abdomen and pelvis was performed, without IV contrast, as per department protocol. Oral contrast not given. Axial, sagittal and coronal reconstructions were obtained. One or more of the following dose reduction techniques were used: Automated exposure control, adjustment of the mA and k V according to the patient size, and iterative reconstruction. Unless otherwise specified, incidental findings do not require dedicated imaging follow-up. COMPARISON: 2018. FINDINGS: The lack of intravenous and oral contrast limits the sensitivity of this exam for evaluation of solid visceral organs, vascular structures, and bowel Small bilateral pleural effusions with basilar atelectasis. Diffuse edema within the subcutaneous tissues. 2 mm calculus right kidney. No ureteral calculus. A bladder calculus not noted. Bilateral extrarenal pelves. Mild prominence of the renal pelves and ureters bilaterally. A Amezcua catheter is present in a collapsed bladder. Prostatic calcifications. Seminal vesicles unremarkable Liver, spleen, pancreas and adrenals grossly normal No evidence of diverticulitis.. Moderate to large amount stool within the colon. Small bilateral inguinal hernias. Trace amount of ascites. 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 Mild prominence of bilateral extrarenal pelves and ureters. This is a new finding when compared to 20 18 exam. Given that the bladder is collapsed it probably does not represent vesicoureteral reflux. No obstructing calculus seen. Moderate to large amount of stool stool burden
--- NOTE | 2024-05-25 10:57 | EDPHYS ---
Physician Documentation [facility] Name: Richard Hatch Age: 88 yrs Sex: Male : 1935 Arrival Date: 05/25/2024 Time: 08:08 Bed 7 Private MD: ED Physician Chauncey Ibarra HPI: 05/25 08:46 This 88 yrs old Male presents to ER via EMS with complaints of Altered Mental rn Status. 08:46 The patient presents with decreased responsiveness. Onset: The symptoms/episode rn began/occurred at an unknown time. Associated signs and symptoms: Pertinent negatives: seizure, vomiting. Current symptoms: In the emergency department the patient's symptoms are unchanged from the initial presentation. It is unknown whether or not the patient has had similar symptoms in the past. Brought in by EMS for altered mental status. Unknown when last normal. No known trauma. custodial reported glucose in the high 200s and decreased responsiveness when checking on him this morning. Patient brought with indwelling Amezcua catheter and noticed gross blood in Amezcua bag. No other information given to EMS.. Historical: - Allergies: 08:11 No Known Allergies; kc6 - PMHx: 08:11 Atrial fibrillation; diabetes mellitus; Hypertension; Anemia; Anxiety; kc6 - PSHx: 08:11 Unable to Obtain; kc6 - Immunization history:: Adult Immunizations unknown. - Infectious Disease History:: Denies. - Social history:: Smoking status: unknown. - Unable to obtain history due to: altered mental status. ROS: 08:46 Unable to obtain ROS due to altered mental status, rn Exam: 08:46 Constitutional: Somnolent patient, grimaces to pain but does not follow commands rn Head/Face: Normocephalic, atraumatic. Eyes: Pupils pinpoint, no nystagmus ENT: Dry mucous membranes, no stridor Cardiovascular: Regular rate, irregular rhythm. Respiratory: Coarse bilateral breath sounds, no retractions Abdomen/GI: Soft, nontender, stool light brown/yellow, no signs of intestinal bleeding MS/ Extremity: Pulses equal, no cyanosis. Neuro: Somnolent, grimaces to pain. 10:14 ECG was reviewed by the Attending Physician. rn Vital Signs: 08:05 BP 94 / 55; kc6 08:09 BP 89 / 62; Pulse 80; Resp 14 S; Temp 97.2(A); Pulse Ox 95% on R/A; kc6 08:10 BP 80 / 42; kc6 08:15 BP 76 / 41; kc6 08:30 BP 93 / 51; Pulse 85; Resp 15 S; Pulse Ox 95% on R/A; kc6 09:10 BP 93 / 69; Pulse 86; Resp 17 S; Pulse Ox 96% on R/A; Weight 83.01 kg (M); kc6 09:41 BP 98 / 54; Pulse 80; Resp 20 S; Pulse Ox 97% on R/A; kc6 10:19 BP 87 / 49; Pulse 82; Resp 17 S; Pulse Ox 96% on R/A; kc6 10:28 BP 88 / 46; Pulse 79; Resp 20 S; Pulse Ox 98% on R/A; kc6 10:30 BP 80 / 60; Pulse 81; Resp 17 S; Pulse Ox 99% on R/A; kc6 10:40 BP 77 / 61; kc6 10:52 BP 58 / 49; kc6 10:55 BP 81 / 50; kc6 11:26 BP 97 / 71; Pulse 77; Resp 20 S; Pulse Ox 95% on BiPAP; kc6 11:37 BP 96 / 84; Pulse 79; Resp 18 S; Pulse Ox 100% on BiPAP; kc6 11:42 BP 111 / 88; Pulse 86; rn 11:56 BP 106 / 57; Pulse 81; Resp 20; Pulse Ox 100% on BiPAP; kc6 12:10 BP 118 / 48; Pulse 92; Resp 17 S; Pulse Ox 100% on BiPAP; bp 12:30 BP 96 / 80; Pulse 81; Resp 19; Pulse Ox 100% ; bp 13:00 BP 113 / 79; Pulse 78; Resp 18; Pulse Ox 100% ; bp MDM: 08:10 Medical Screening Exam initiated rn 10:31 ED course: Patient with both urinary tract infection and possible pneumonia on chest rn x-ray. Antibiotics ordered and given. Blood cultures were obtained prior to antibiotics. Lactic acid greater than 4 so 30 mL/kg bolus initiated, blood pressure holding steady, sepsis reevaluation complete. 10:54 Differential Diagnosis: electrolyte abnormality, pneumonia, sepsis, UTI, volume rn depletion. Data reviewed: vital signs, nurses notes, lab test result(s), and as a result, I will admit patient. Consideration of Admission/Observation Patient was admitted/placed on observation. Escalation of care including admission/observation considered. Counseling: I had a detailed discussion with the patient and/or guardian regarding the historical points, exam findings, and any diagnostic results supporting the discharge/admit diagnosis, lab results, radiology results, the need for further work-up and treatment in the hospital. ED course: I personally spent 35 minutes engaged in work directly related to the individual patient's care. This does not include any time spent performing procedures. The patient has been deemed critically ill because of altered mental status with broad differential, severe sepsis with septic shock requiring fluid resuscitation, organization of admission to hospital.. 11:11 ED course: Spoke to family about CODE STATUS, they are not sure at the moment, patient rn does not have advanced directives, they are leaning towards DNR.. 11:42 ED course: BP improved to 111/88 after initiation of Levophed. Sepsis reevaluation rn completed. 05/25 08:11 Order name: Blood Culture Adult (2) rn 05/25 08:11 Order name: CBC with Diff; Complete Time: 09:53 05/25 08:11 Order name: CMP; Complete Time: 09:23 rn 05/25 08:11 Order name: Lactate w/ 2H reflex if indic.; Complete Time: 09:26 rn 05/25 08:11 Order name: Protime (+inr); Complete Time: 09:23 rn 05/25 08:11 Order name: Ptt, Activated; Complete Time: 09:23 05/25 08:11 Order name: Flu; Complete Time: 09:53 05/25 08:36 Order name: Type And Screen; Complete Time: 09:53 kc6 05/25 08:57 Order name: Urine Microscopic Only; Complete Time: 09:23 [facility] 05/25 09:03 Order name: NT PRO-BNP; Complete Time: 09:23 [facility] 05/25 09:11 Order name: Manual Differential; Complete Time: 09:53 [facility] 05/25 09:21 Order name: Urine Culture [facility] 05/25 11:25 Order name: Ghost Lactate-NO COLLECT Timer; Complete Time: 11:37 [facility] 05/25 12:02 Order name: Lactate Sepsis 2 HR Follow-up [facility] 05/25 12:47 Order name: Hematocrit [facility] 05/25 12:47 Order name: Hemoglobin EDMS 05/25 12:47 Order name: CBC with Automated Diff EDMS 05/25 12:47 Order name: CBC with Automated Diff EDMS 05/25 12:47 Order name: CBC with Automated Diff EDMS 05/25 12:47 Order name: CBC with Automated Diff EDMS 05/25 12:47 Order name: CBC with Automated Diff EDMS 05/25 12:47 Order name: CBC with Automated Diff EDMS 05/25 12:47 Order name: CBC with Automated Diff EDMS 05/25 12:47 Order name: CBC with Automated Diff EDMS 05/25 12:47 Order name: Comprehensive Metabolic Panel EDMS 05/25 12:47 Order name: Comprehensive Metabolic Panel EDMS 05/25 12:47 Order name: Comprehensive Metabolic Panel EDMS 05/25 12:47 Order name: Comprehensive Metabolic Panel EDMS 05/25 12:47 Order name: Comprehensive Metabolic Panel EDMS 05/25 12:47 Order name: Comprehensive Metabolic Panel EDMS 05/25 12:47 Order name: Comprehensive Metabolic Panel EDMS 05/25 12:47 Order name: Comprehensive Metabolic Panel EDMS 05/25 12:47 Order name: Magnesium EDMS 05/25 12:47 Order name: Magnesium EDMS 05/25 12:47 Order name: Magnesium EDMS 05/25 12:47 Order name: Magnesium EDMS 05/25 12:47 Order name: Magnesium EDMS 05/25 12:47 Order name: Magnesium EDMS 05/25 12:47 Order name: Magnesium EDMS 05/25 12:47 Order name: Magnesium EDMS 05/25 12:47 Order name: Phosphorus EDMS 05/25 12:47 Order name: Phosphorus EDMS 05/25 12:47 Order name: Phosphorus EDMS 05/25 12:47 Order name: Phosphorus EDMS 05/25 12:47 Order name: Phosphorus EDMS 05/25 12:47 Order name: Phosphorus EDMS 05/25 12:47 Order name: Phosphorus EDMS 05/25 12:47 Order name: Phosphorus EDMS 05/25 08:11 Order name: Chest Single View XRAY; Complete Time: 09:23 rn 05/25 08:11 Order name: CT Head Brain wo Cont; Complete Time: 09:23 rn 05/25 09:54 Order name: CT Stone Protocol; Complete Time: 10:49 rn 05/25 12:47 Order name: CONS Physician Consult EDMS 05/25 08:11 Order name: Accucheck; Complete Time: 08:54 rn 05/25 08:11 Order name: Cardiac monitoring; Complete Time: 08:14 rn 05/25 08:11 Order name: EKG - Nurse/Tech; Complete Time: 08:30 rn 05/25 08:11 Order name: IV Saline Lock - Large Bore; Complete Time: 08:54 rn 05/25 08:11 Order name: Labs collected and sent; Complete Time: 08:54 rn 05/25 08:11 Order name: O2 Per Protocol; Complete Time: 08:14 rn 05/25 08:11 Order name: O2 Sat Monitoring; Complete Time: 08:14 rn 05/25 08:11 Order name: Vital Signs; Complete Time: 08:14 rn EC:14 Rate is 82 beats/min. Rhythm is irregularly irregular. QRS interval is normal. QT rn interval is normal. No Q waves. T waves are Normal. No ST changes noted. Clinical impression: Atrial Fibrillation. Interpreted by me. Reviewed by me. Administered Medications: 08:59 Drug: NS 0.9% IV 500 ml 500 ml IV at 1 bolus once; to be given as a bolus over 30 kc6 minutes Volume: 500 ml; Route: IV; Rate: 1 bolus; Site: right forearm; 10:19 Follow up: Response: No adverse reaction; IV Status: Completed infusion; IV Intake: kc6 500ml 09:41 Drug: NS 0.9% IV (30 ml/kg) 30 ml/kg IV at bolus once; Sepsis Protocol; to be given as kc6 a bolus over 90 minutes; Route: IV; Rate: bolus; Site: right forearm; 11:07 Follow up: Response: No adverse reaction; IV Status: Completed infusion; IV Intake: kc6 2000ml 09:41 Drug: Rocephin IV 1 grams IV at calculated rate once; Given slow IV push per pharmacy kc6 instructions Route: IV; Rate: calculated rate; Site: right forearm; 10:19 Follow up: Response: No adverse reaction; IV Status: Completed infusion; IV Intake: [id number] 09:41 Drug: Zithromax IVPB 500 mg IVPB once over 1 hrs; mix in 250 mL NS Route: IVPB; Infused kc6 Over: 1 hrs; Site: right forearm; 11:24 Follow up: Response: No adverse reaction; IV Status: Completed infusion; IV Intake: kc6 250ml 11:20 Drug: Norepinephrine IV 0.1 mcg/kg/min IV at calculated rate See Administration kc6 Instructions; (Standard concentration 4 mg / 250 mL D5W); Recommended max rate 3 mcg/kg/min; Titrate 0.05 mcg/kg/min as often as every 5 minutes to achieve goal (see titration policy); Goal parameter MAP greater than 65 mmHg. Route: IV; Rate: calculated rate; Site: right forearm; 11:38 Follow up: Response: No adverse reaction; Blood pressure is elevated; Rate change 0.15 kc6 mcg/kg/min 12:25 Follow up: Response: No adverse reaction; Blood pressure is elevated; Rate change 0.2 kc6 mcg/kg/min Disposition: 10:54 Critical Care:. 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 Total time: 35 minutes rn Signatures: Dispatcher [employer] Chauncey Donald MD MD rn Botello, Elizabeth eb Campbell, Kaitlyn, RN RN kc6 Corrections: (The following items were deleted from the chart) 08:12 08:12 Chest Single View+RAD.RAD.BRZ ordered. EDMS EDMS 08:12 08:12 Head Brain Wo Cont+CT.RAD.BRZ ordered. EDMS EDMS 08:57 08:11 Urinalysis+U.LAB.BRZ ordered. EDMS EDMS 09:03 08:42 PROBNP+C.LAB.BRZ ordered. EDMS EDMS 09:29 08:46 Constitutional: Somnolent patient, grimaces to pain but does not follow commands rn Head/Face: Normocephalic, atraumatic. Eyes: Pupils pinpoint, no nystagmus ENT: Dry mucous membranes, no stridor Cardiovascular: Regular rate, irregular rhythm. Respiratory: Coarse bilateral breath sounds, no retractions Abdomen/GI: Soft, nontender MS/ Extremity: Pulses equal, no cyanosis. Neuro: Somnolent, grimaces to pain. rn 11: 10:57 Telemetry/MedSurg (Inpatient) rn rn 11: 10:57 rn rn 11:11 11:11 BiPap ([employer] Only)+NICOL.RAD.BRZ ordered. EDMS EDMS 12:52 11:02 megan mcgovern
--- NOTE | 2024-05-25 10:57 | ER ---
Nurse's Notes [facility] Name: Richard Hatch Age: 88 yrs Sex: Male : 1935 Arrival Date: 05/25/2024 Time: 08:08 Bed 7 Private MD: Diagnosis: Severe sepsis with septic shock;Pneumonia, unspecified organism;UTI/ Urinary tract infection, site not specified;Altered mental status, unspecified Presentation: 05/25 08:09 Chief complaint: EMS states: they were toned out to [place] for high BGL and AMS. kc6 unknown LKW. Coronavirus screen: At this time, the client does not indicate any symptoms associated with coronavirus-19. Ebola Screen: No symptoms or risks identified at this time. Initial Sepsis Screen: Does the patient meet any 2 criteria? Altered Mental Status. Does the patient have a suspected source of infection? No. Patient's initial sepsis screen is negative. Risk Assessment: Do you want to hurt yourself or someone else? Unable to obtain. Onset of symptoms was May 25, 2024. 08:09 Method Of Arrival: EMS: [facility] kc6 08:09 Acuity: JADEN 2 kc6 Historical: - Allergies: 08:11 No Known Allergies; kc6 - PMHx: 08:11 Atrial fibrillation; diabetes mellitus; Hypertension; Anemia; Anxiety; kc6 - PSHx: 08:11 Unable to Obtain; kc6 - Immunization history:: Adult Immunizations unknown. - Infectious Disease History:: Denies. - Social history:: Smoking status: unknown. - Unable to obtain history due to: altered mental status. Screenin:12 [facility] ED Fall Risk Assessment (Adult) History of falling in the last 3 months, kc6 including since admission No falls in past 3 months (0 pts) Confusion or Disorientation Yes (5 pts) Intoxicated or Sedated No (0 pts) Impaired Gait Yes (1 pt) Mobility Assist Device Used Yes (1 pt) Altered Elimination Yes (1 pt) Score/Fall Risk Level 3 or more points = High Risk Oriented to surroundings, Maintained a safe environment, Educated pt \T\ family on fall prevention, incl call for assistance when getting out of bed. Abuse screen: Denies threats or abuse. Denies injuries from another. Nutritional screening: No deficits noted. Tuberculosis screening: No symptoms or risk factors identified. Assessment: 08:12 General: Appears distressed, uncomfortable, well developed, Behavior is drowsy. Pain: kc6 Noted to be confused, grimacing, moaning, Unable to use pain scale. Patient is disoriented. Does not appear to understand pain scale. Neuro: Level of Consciousness is confused, lethargic, Oriented to none Pupils are pinpoint. Cardiovascular: Capillary refill < 3 seconds Rhythm is atrial fibrillation. Respiratory: Airway is patent Trachea midline Respiratory effort is even, unlabored, Respiratory pattern is regular, symmetrical, Breath sounds with crackles bilaterally. GI: No signs and/or symptoms were reported involving the gastrointestinal system. : Amezcua in place to gravity drainage clamped Urine is deion blood. Derm: No signs and/or symptoms reported regarding the dermatologic system. Skin is fragile, is thin, with poor turgor Skin is dry, Skin is pale, Skin temperature is warm Wound noted buttocks, right foot and left foot. Musculoskeletal: No signs and/or symptoms reported regarding the musculoskeletal system. Circulation, motion, and sensation intact. Capillary refill < 3 seconds, Range of motion: intact in all extremities. 09:04 Reassessment: No changes from previously documented assessment. Patient and/or family kc6 updated on plan of care and expected duration. Pain level reassessed. 10:19 Reassessment: No changes from previously documented assessment. Patient and/or family kc6 updated on plan of care and expected duration. Pain level reassessed. 11:20 Reassessment: No changes from previously documented assessment. Patient and/or family kc6 updated on plan of care and expected duration. Pain level reassessed. pt placed on bipap at this time with Levophed infusing. 12:25 Reassessment: Patient appears in no apparent distress at this time. No changes from kc6 previously documented assessment. Patient and/or family updated on plan of care and expected duration. Pain level reassessed. Vital Signs: 08:05 BP 94 / 55; kc6 08:09 BP 89 / 62; Pulse 80; Resp 14 S; Temp 97.2(A); Pulse Ox 95% on R/A; kc6 08:10 BP 80 / 42; kc6 08:15 BP 76 / 41; kc6 08:30 BP 93 / 51; Pulse 85; Resp 15 S; Pulse Ox 95% on R/A; kc6 09:10 BP 93 / 69; Pulse 86; Resp 17 S; Pulse Ox 96% on R/A; Weight 83.01 kg (M); kc6 09:41 BP 98 / 54; Pulse 80; Resp 20 S; Pulse Ox 97% on R/A; kc6 10:19 BP 87 / 49; Pulse 82; Resp 17 S; Pulse Ox 96% on R/A; kc6 10:28 BP 88 / 46; Pulse 79; Resp 20 S; Pulse Ox 98% on R/A; kc6 10:30 BP 80 / 60; Pulse 81; Resp 17 S; Pulse Ox 99% on R/A; kc6 10:40 BP 77 / 61; kc6 10:52 BP 58 / 49; kc6 10:55 BP 81 / 50; kc6 11:26 BP 97 / 71; Pulse 77; Resp 20 S; Pulse Ox 95% on BiPAP; kc6 11:37 BP 96 / 84; Pulse 79; Resp 18 S; Pulse Ox 100% on BiPAP; kc6 11:42 BP 111 / 88; Pulse 86; rn 11:56 BP 106 / 57; Pulse 81; Resp 20; Pulse Ox 100% on BiPAP; kc6 12:10 BP 118 / 48; Pulse 92; Resp 17 S; Pulse Ox 100% on BiPAP; bp 12:30 BP 96 / 80; Pulse 81; Resp 19; Pulse Ox 100% ; bp 13:00 BP 113 / 79; Pulse 78; Resp 18; Pulse Ox 100% ; bp ED Course: 08:09 Patient arrived in ED. kc6 08:09 One-on-one care X 45 minutes. kc6 08:10 Chauncey Ibarra MD is Attending Physician. rn 08:11 Triage completed. kc6 08:11 Arm band placed on. kc6 08:11 Patient has correct armband on for positive identification. Placed in gown. Bed in low kc6 position. Call light in reach. Side rails up X2. gambling monitor on. Pulse ox on. NIBP on. Door closed. Noise minimized. Lights dimmed. Warm blanket given. Pillow given. 08:12 Patient maintains SpO2 saturation greater than 95% on room air. kc6 08:14 Melly Harrison, ARIANNA is Primary Nurse. kc6 08:30 Chest Single View XRAY In Process Unspecified. EDMS 08:54 Accessed peripheral vein via ultrasound, utilizing dynamic ultrasound technique using kc6 20G Nexia IV catheter ,sterile technique, per hospital protocol. Clean \T\ dry. Dressing intact. Good blood return. Flushes easily. 09:06 CT Head Brain wo Cont In Process Unspecified. EDMS 09:30 Served as a muffle worker during rectal exam. kc6 10:12 CT Stone Protocol In Process Unspecified. EDMS 10:56 Eleazar Kathleen is Hospitalizing Provider. rn Administered Medications: 08:59 Drug: NS 0.9% IV 500 ml 500 ml IV at 1 bolus once; to be given as a bolus over 30 kc6 minutes Volume: 500 ml; Route: IV; Rate: 1 bolus; Site: right forearm; 10:19 Follow up: Response: No adverse reaction; IV Status: Completed infusion; IV Intake: kc6 500ml 09:41 Drug: NS 0.9% IV (30 ml/kg) 30 ml/kg IV at bolus once; Sepsis Protocol; to be given as kc6 a bolus over 90 minutes; Route: IV; Rate: bolus; Site: right forearm; 11:07 Follow up: Response: No adverse reaction; IV Status: Completed infusion; IV Intake: kc6 2000ml 09:41 Drug: Rocephin IV 1 grams IV at calculated rate once; Given slow IV push per pharmacy kc6 instructions Route: IV; Rate: calculated rate; Site: right forearm; 10:19 Follow up: Response: No adverse reaction; IV Status: Completed infusion; IV Intake: [id number] 09:41 Drug: Zithromax IVPB 500 mg IVPB once over 1 hrs; mix in 250 mL NS Route: IVPB; Infused kc6 Over: 1 hrs; Site: right forearm; 11:24 Follow up: Response: No adverse reaction; IV Status: Completed infusion; IV Intake: kc6 250ml 11:20 Drug: Norepinephrine IV 0.1 mcg/kg/min IV at calculated rate See Administration kc6 Instructions; (Standard concentration 4 mg / 250 mL D5W); Recommended max rate 3 mcg/kg/min; Titrate 0.05 mcg/kg/min as often as every 5 minutes to achieve goal (see titration policy); Goal parameter MAP greater than 65 mmHg. Route: IV; Rate: calculated rate; Site: right forearm; 11:38 Follow up: Response: No adverse reaction; Blood pressure is elevated; Rate change 0.15 kc6 mcg/kg/min 12:25 Follow up: Response: No adverse reaction; Blood pressure is elevated; Rate change 0.2 kc6 mcg/kg/min Intake: 10:19 IV: 500ml; Total: 500ml. kc6 10:19 IV: 10ml; Total: 510ml. kc6 11:07 IV: 2000ml; Total: 2510ml. kc6 11:24 IV: 250ml; Total: 2760ml. kc6 Outcome: 10:57 Decision to Hospitalize by Provider. rn 14:03 Patient left the ED. hb Signatures: Dispatcher [employer] EDMS Chauncey Ibarra MD MD rn Baxter, Heather, RN RN Dilan Luna RN RN bp Campbell, Kaitlyn, RN RN kc6 Corrections: (The following items were deleted from the chart) 08:47 08:14 BP 94 / 55; 6 [facility] 08:49 08:12 General: Appears distressed, uncomfortable, well developed, Behavior is drowsy, [place] [id number] 08:49 08:12 Pain: Unable to use pain scale. Patient is disoriented. Does not appear to [facility] understand pain scale. kc6 08:49 08:12 : Amezcua in place to gravity drainage clamped Urine is blood tinged, [place] [id number] 09:05 08:12 Neuro: Level of Consciousness is confused, lethargic, Oriented to none [place] [id number] 09:05 08:12 EENT: No signs and/or symptoms were reported regarding the EENT system. [place] [id number] 09:18 08:54 Accessed peripheral vein via ultrasound, utilizing dynamic ultrasound technique [facility] using 20G Nexia IV catheter ,sterile technique, per hospital protocol. Clean \T\ dry. Dressing intact. Good blood return. Flushes easily. bp 11:26 10:44 BP 80 / 60; Pulse 81bpm; Resp 17bpm; Spontaneous; Pulse Ox 99% RA; [facility] kc6 11:41 08:09 Initial Sepsis Screen: Does the patient meet any 2 criteria? Altered Mental hb Status. Does the patient have a suspected source of infection? No. Patient's initial sepsis screen is negative. kc6 12:26 11:56 BP 106 / 57; Pulse 81bpm; Resp 20bpm; Pulse Ox 100%; bp kc6 13:03 11:56 BP 118 / 48; Pulse 92bpm; Resp 17bpm; Spontaneous; Pulse Ox 100% BiPAP; kc6 bp
[2024-05-25] MEDS ORDERED: NOREPINEPHRINE BITARTRATE/D5W 4 MG/250 ML KIT IV ONE (11:07)
--- NOTE | 2024-05-25 11:34 | P.HP ---
Certification for Inpatient Patient admitted to: Inpatient With expected LOS: >2 Midnights Patient will require the following post-hospital care: None Practitioner: I am a practitioner with admitting privileges, knowledge of patient current condition, hospital course, and medical plan of care. Services: Services provided to patient in accordance with Admission requirements found in Title 42 Section 412.3 of the Code of Federal Regulations Patient History Date of Service: 05/25/24 Reason for admission: Severe sepsis with shock History of Present Illness: Richard Hatch is an 88 year old male atrial fibrillation, hypertension, diabetes mellitus, anxiety, anemia, GI bleed who presents to the ED from the [facility] with altered mental status. On evaluation in the ED is found to have severe sepsis with shock. SBP 90 with 1 L normal saline bolus. WBC 25.9, lactic 4.6, H&H 7.8/26, sodium 132, potassium 5.3, BUN creatinine 89/4.68, GFR 11, serum glucose 2031, BNP 6008, UA with bacteria. His previous ED visit he was anemic with hemoglobin 5.8, and was transferred for higher level of care to treat GI bleed Initial vitals BP 89 / 62; Pulse 80; Resp 14 S; Temp 97.2(A); Pulse Ox 95% on R/A; Chest x-ray reports "mild medial opacity mid to lower right lung could represent atelectasis or infiltrate." CT brain without contrast reports "no acute intracranial abnormality noted." CT abdomen pelvis reports "2 mm calculus right kidney nonobstructive. Bilateral extrarenal pelvis mild prominence of the renal pelvis and ureters bilaterally. Small bilateral pleural effusions with basilar atelectasis." Richard will be admitted to ICU per hospitalist service for further evaluation and treatment of severe sepsis with shock. Allergies No Known Drug Allergies Allergy (Verified 12/11/14 05:54) Unknown No Known Allergies Allergy (Uncoded 12/03/15 16:12) Unknown Home Medications: Metformin HCl [Metformin ER Osmotic] 1,000 mg PO BID 10/08/12 allopurinoL [Zyloprim*] 300 mg PO DAILY 12/03/14 Glimepiride [Amaryl] 4 mg PO BID 12/11/14 Hydrocodone Bit/Acetaminophen [Ackerly 7.5-325 Tablet] 1 tab PO BID PRN 12/11/14 Pravastatin Sodium [Pravachol] 40 mg PO BEDTIME 12/11/14 Fluticasone [Flonase 50MCG Nasal [place]*] 2 sprays MAX BID #1 btl 12/13/14 Magnesium Oxide [Mag 0X*] 400 mg PO DAILY #30 tab 12/13/14 Metoprolol Succinate [Toprol Xl] 25 mg PO BEDTIME 12/13/14 Pantoprazole Sodium [Protonix] 40 mg PO DAILY 12/13/14 Rivaroxaban [Xarelto*] 15 mg PO BID #40 tablet 12/13/14 - Past Medical/Surgical History Diabetic: Yes -: NIDDM -: HYPERLIPIDEMIA -: HTN -: GOUT -: BACK/NECK PAIN -: ULCER -: Pulmonary emboli acute -: NECK SURGERY -: SINUS SURGERY - Social History Smoking Status: Never smoker Alcohol use: No CD- Drugs: No Caffeine use: No Review of Systems is unable to be obtained Physical Examination - Physical Exam General: Unresponsive, Other (aggitated) HEENT: Atraumatic, Normocephalic Neck: 2+ carotid pulse no bruit Respiratory: Normal air movement Cardiovascular: Normal pulses, Regular rate/rhythm Capillary refill: <2 Seconds Gastrointestinal: Soft and benign, No tenderness Musculoskeletal: No clubbing Integumentary: No rashes Neurological: Normal speech, Normal tone - Studies Laboratory Data (last 24 hrs) 05/25/24 05/25/24 05/25/24 08:52 08:52 08:52 WBC 25.90 H Hgb 7.8 L Hct 26.0 L Plt Count 373 PT 15.9 H INR 1.43 APTT 29.8 Sodium 132 L Potassium 5.3 H BUN 89 H Creatinine 4.68 H Glucose 231 H Total Bilirubin 0.6 AST 34 ALT 20 Alkaline Phosphatase 159 H Microbiology Data (last 24 hrs): 05/25/24 08:30 Nasopharnyx Influenza Type A Antigen Screen - Final 05/25/24 08:30 Nasopharnyx Influenza Type B Antigen Screen - Final Assessment and Plan - Plan Assessment and plan Severe sepsis with shock secondary to urinary tract infection Hematuria -Admit to ICU -Severe sepsis criteria WBC 25.9, lactate 4.6/3.8, BP 58/49, on BiPAP -Merrem and vanc -Pain control -Amezcua catheter in place -Norepinephrine titrate as needed for MAP 65 -BiPAP in the ED, improved to nasal cannula in the ICU CKD Uremic -Nephrology consulted -Bicarb drip started -BUN/creatinine 89/4.68, GFR 11 Anemia History of GI bleed -H&H 7.8/26 -Transfuse as needed -Monitor in a.m. labs Diabetes mellitus -Serum glucose 231 -Accu-Chek with sliding scale insulin Atrial fibrillation Hypertension Anxiety -Continue home medications when taking p.o. DVT PPx SCDs while anemic DNR LOS 2 to 3 days Discharge Plan: Correction - Advance Directives Does patient have a Living Will: No Does patient have a Durable POA for Healthcare: No
[2024-05-25] MEDS ORDERED: ACETAMINOPHEN 650MG/RECT SUPP PR PRN (12:36)
[2024-05-25] MEDS: FLEET ENEMA ADULT PR ONE (12:36)
[2024-05-25] MEDS: NA CHLORIDE 0.9% 1,000 ML IV SCH (13:00)
[2024-05-25] MEDS ORDERED: NOREPINEPHRINE 4 MG in D5W 250 ML IV SCH (13:00)
[2024-05-25] MEDS: VANCOMYCIN 1.5 GM in NA CHLORIDE 0.9% 500 ML IVPB SCH (15:32)
[2024-05-25] MEDS: NOREPINEPHRINE 8 MG in Dextrose 5%-Water 500 ML IV SCH (15:32)
[2024-05-25] MEDS: NACHLORIDE 0.45% 1,000 ML with NA BICARB 8.4% 75 MEQ IV SCH (15:33)
[2024-05-25] MEDS: INSULIN REGULAR (HUMAN) 100 UNIT/ML SQ SCH (17:35)
[2024-05-25] MEDS: Meropenem 1,000 MG in NA CHLORIDE 0.9% 100 ML IV SCH (17:35)
[2024-05-25] MEDS: NOREPINEPHRINE BITARTRATE/D5W 4 MG/250 ML KIT IV ONE (23:16)
[2024-05-25] MEDS: NOREPINEPHRINE 4 MG in D5W 250 ML IV SCH (23:20)
[2024-05-26] MEDS: NOREPINEPHRINE BITARTRATE/D5W 4 MG/250 ML KIT IV ONE (03:49)
[2024-05-26 05:53] LABS: Absolute Eosinophils 0.1 K/uL (0-0.5); Absolute Lymphocytes (CBC) 0.1 K/uL (0.7-4.9); Absolute Monocytes 0.7 K/uL (0.1-1.3); Absolute Neutrophil 14.2 K/uL (1.8-8.0); Basophils % 0.1 % (0-1.3); Eosinophils % 0.5 % (0-4.4); Hematocrit 26.8 % (39.6-49.0); Hemoglobin 8.2 g/dL (13.6-17.9); MCH 26.3 pg (27.0-35.0); MCHC 30.8 g/dL (32.0-36.0); MCV 85.4 fL (80-100); MPV 7.1 fL (7.6-11.3); Monocytes % 4.6 % (3.3-12.3); Neutrophils % 93.8 % (41.7-73.7); Nucleated RBC Absolute Count 0.1 (0-0); Nucleated Red Blood Cells % 0.4 % (0-0); Platelets 281 thou/uL (152-406); RBC Red Blood Cell Count 3.14 M/uL (4.33-5.43)
[2024-05-26 06:09] LABS: Albumin 1.6 g/dL (3.4-5.0); Albumin/Globulin Ratio 0.3 (1.1-1.8); Anion Gap 15.9 mEq/L (5.0-15.0); Bilirubin Total 0.6 mg/dL (0.2-1.0); Globulin 5.3 g/dL (2.3-3.5); Phosphorus 5.1 mg/dL (2.5-4.9); Potassium 4.9 mEq/L (3.5-5.1); Protein, Total 6.9 g/dL (6.4-8.2)
--- NOTE | 2024-05-26 06:37 | P.PN ---
Date of Service: 05/26/24 Subjective Sleeping, agitated when awake on 3 LNC PICC line placed ROS 10 point ROS as noted above, otherwise negative Physical Exam General: Sleeping, aggitated when awake HEENT: Atraumatic, Normocephalic Neck: 2+ carotid pulse no bruit Respiratory: Normal air movement, 3 LNC Cardiovascular: Normal pulses, RRR, S1 S2 present Capillary refill: <2 Seconds Gastrointestinal: Soft and benign on palpation, No tenderness Musculoskeletal: No clubbing Integumentary: No rashes Neurological: Normal speech, Normal tone Vitals Reviewed Problem list Severe sepsis with shock secondary to urinary tract infection Hematuria CKD Uremic Anemia History of GI bleed Diabetes mellitus Atrial fibrillation Hypertension Anxiety Assessment and Plan Severe sepsis with shock secondary to urinary tract infection Cauti Toxic Encephalopathy 2/2 Sepsis and UTI Hematuria -Admit to ICU -Severe sepsis criteria WBC 25.9, lactate 4.6/3.8/3.4, BP 58/49, on BiPAP -WBC 15.10- improved -Continue Merrem and vanc -Pain control -Amezcua catheter in place since May 12 from Outside facility -Urine culture growing gram-negative -Blood culture growing gram-negative x 4 vials -Norepinephrine titrate as needed for MAP 65- continued OVN -BiPAP in the ED, improved to nasal cannula in the ICU CKD Uremic -Nephrology consulted -Continue Bicarb drip -BUN/creatinine 85/4.62, GFR 11 -UOP 350 in 24 hours -may need to start dialysis Anemia History of GI bleed -H&H 8.2/26.8 improved without transfusion -Transfuse as needed -Monitor in a.m. labs Diabetes mellitus -Serum glucose 231 -Accu-Chek with sliding scale insulin Atrial fibrillation Hypertension Anxiety -Continue home medications when taking p.o. DVT PPx SCDs while anemic DNR LOS 2 to 3 days Discharge Plan: [facility] <Nicole Block - Last Filed: 05/26/24 16:11> Patient seen and examined. Plan of care discussed with Ms. Block. Patient remained on Levophed drip. Leukocytosis has significantly improved. Blood culture: Gram-negative rods. Continue IV meropenem, discontinue vancomycin Continue bicarb drip for KYLER with metabolic acidosis. Neurochecks. Follow cultures. Nephrology input appreciated. <delfina marcial - Last Filed: 05/26/24 20:06>
[2024-05-26] MEDS ORDERED: NOREPINEPHRINE 16 MG in D5W 250 ML IV SCH (08:00)
[2024-05-26] MEDS: NOREPINEPHRINE IV SCH (08:41)
[2024-05-26] MEDS: NA CHLORIDE 0.9% IV SCH (08:41)
[2024-05-26] MEDS: FUROSEMIDE 40 MG/4 ML VIAL IV ONE ×2 (10:46→22:02)
--- NOTE | 2024-05-26 11:23 | RAD REPORT ---
Procedure: Chest Single View HISTORY: PICC line placement FINDINGS: A PICC line has been place with its tip in the proximal to mid SVC
[2024-05-26] MEDS: FENTANYL CITR 100 MCG/2 ML IV PRN (11:36)
--- NOTE | 2024-05-26 15:57 | CON ---
Date of Consultation: 05/26/2024 Chief Complaint: Acute kidney injury, severe sepsis, septic shock. History Of Present Illness: The patient is an 88-year-old male, admitted to ICU for severe hypotensi on. He was found to have acute kidney injury. Creatinine level is 4.62, BUN 85. The patient is on bicarbonate drip for metabolic acidosis. Bicarbonate level is 19, chloride 102, sodium 132, glucose 231. The patient has history of urinary retention. During previous admission, he had a Amezcua cathet er placed. He remains borderline oliguric today. On previous occasion back in April, creatinine l evel was 3.71 and on October 30, 2019, creatinine level was 1.35. Over last 24 hours, renal function h as not improved. Urine output is less than 500 mL. The patient is on pressors for severe hypotensio n. He remains confused. He is encephalopathic. He has history of atrial fibrillation, hypertension , diabetes mellitus, anxiety, anemia, GI bleeding. He presented to emergency department from residential with altered mental status. On evaluation in the emergency department, he was found to have se shoaib sepsis and shock. Systolic blood pressure was 90 and he received IV fluids with normal saline b olus. Lactic acid was 4.6. WBC 25.9, hemoglobin 7.8, hematocrit 26. Sodium 132, potassium 5.3, BUN 89, creatinine 4.68. During previous ED visit, he was found to have anemia with hemoglobin of 5.8. He was transferred to a higher level of care. At the same time, he was found to have elevated creat inine and he had a Amezcua catheter. Chest x-ray showed mild medial opacities, mid to lower right lung that could represent atelectasis or infiltrate. CT scan of the brain without contrast showed no acu te intracranial abnormality. CT abdomen and pelvis showed a 2 mm calculus, right kidney, nonobstruct jacquelyn bilateral extrarenal pelvis, mild prominence of the renal pelvis and ureters bilaterally. Small pleural effusion with bibasilar atelectasis. Review of Systems: Unobtainable. Patient cannot provide review of systems. He is arousable, although he is confused an d somewhat anxious. Past Medical History: Insulin-dependent diabetes mellitus, hyperlipidemia, hypertension, gout, chron ic back pain, pulmonary emboli acute neck surgery, sinus surgery. Social History: Never smoker. Denies alcohol. Denies caffeine. Review of Systems: Unobtainable. Physical Examination: General: Patient is responsive, although he is agitated. HEENT: Atraumatic, normocephalic. Neck: Supple. No bruits. Lungs: Slight breath sound bilaterally at bases. Cardiovascular: S1, S2. No pericardial friction or rub. Abdomen: Obese, soft, nontender. No rebound. No guarding. Extremities: Edema present in upper and lower extremities. Labs: Sodium 132, potassium 5.3, BUN 89, creatinine 4.68, glucose 231. AST 34, ALT 20, AP 159. Impression And Plan: The patient was found to have urinary tract infection and hematuria. He has a Amezcua catheter and previously was placed. He may need Urology evaluation of hematuria, when he is st able. The patient is admitted to ICU for severe sepsis for severe leukocytosis of WBC 25.9. Lactic acid is improving from 4.6-3.8. Blood pressure has not improved and patient is started on norepineph rine drip titrated mode. Amezcua catheter will be maintained and patient is on broad-spectrum antibiot ic for UTI and urosepsis. The patient has acute on chronic kidney injury and fluid overload. Plan i s to use diuretics to induce diuresis and monitor electrolytes and renal function as well as urine ou tput. The patient may need to start hemodialysis. I discussed with the family at the bedside and th ey had not made a decision about treatment as far as dialysis. Anemia and transfusion according to lab results. Diabetes mellitus. Continue insulin. Avoid metformin. The patient cannot have metformin because of severe acute kidney injury and there is high risk of lactic acidosis. Monitor lactic acid. Atrial fibrillation per primary team. Hypertension, blood pressure medication on hold due to acute k idney injury. EB/MODL Voice ID: [id number] Report ID: [id number]
[2024-05-26] MEDS: Mupirocin NASAL 2 APPL/1 GM TUBE NAS SCH (20:55)
[2024-05-26 22:23] LABS: Anion Gap 14.9 mEq/L (5.0-15.0); Potassium 4.9 mEq/L (3.5-5.1)
[2024-05-27 06:32] LABS: Absolute Eosinophils 0.2 K/uL (0-0.5); Absolute Lymphocytes (CBC) 0.4 K/uL (0.7-4.9); Absolute Monocytes 0.9 K/uL (0.1-1.3); Absolute Neutrophil 12.5 K/uL (1.8-8.0); Basophils % 0.3 % (0-1.3); Eosinophils % 1.6 % (0-4.4); Hematocrit 23.7 % (39.6-49.0); Hemoglobin 7.3 g/dL (13.6-17.9); Lymphocytes % 2.5 % (15.3-44.8); MCH 26.4 pg (27.0-35.0); MCHC 30.8 g/dL (32.0-36.0); MCV 85.6 fL (80-100); MPV 7.3 fL (7.6-11.3); Monocytes % 6.1 % (3.3-12.3); Neutrophils % 89.5 % (41.7-73.7); Nucleated RBC Absolute Count 0.1 (0-0); Nucleated Red Blood Cells % 0.7 % (0-0); Platelets 196 thou/uL (152-406); RBC Red Blood Cell Count 2.77 M/uL (4.33-5.43); Red Cell Distribution Width 18.3 % (12.1-15.2)
[2024-05-27 07:05] LABS: Albumin 1.5 g/dL (3.4-5.0); Albumin/Globulin Ratio 0.3 (1.1-1.8); Anion Gap 15.9 mEq/L (5.0-15.0); Bilirubin Total 0.8 mg/dL (0.2-1.0); Magnesium 2.1 mg/dL (1.6-2.4); Phosphorus 5.6 mg/dL (2.5-4.9); Potassium 4.9 mEq/L (3.5-5.1); Protein, Total 6.5 g/dL (6.4-8.2)
[2024-05-27 07:10] LABS: Thyroid Stimulating Hormone 16.7 uIU/mL (0.358-3.740)
[2024-05-27] MEDS ORDERED: NA CHLORIDE 0.9% 250 ML IV SCH (09:00)
[2024-05-27] MEDS: NA CHLORIDE 0.9% 250 ML ONE (09:42)
[2024-05-27] MEDS: MEDIHONEY 44 ML TOPICAL TUBE TOP SCH (11:42)
[2024-05-27] MEDS: FUROSEMIDE 40 MG/4 ML VIAL IV ONE (11:42)
--- NOTE | 2024-05-27 14:20 | P.PN ---
Date of Service: 05/27/24 Subjective Agitated, confused Weaning levophed Receiving blood transfusion ROS 10 point ROS as noted above, otherwise negative Physical Exam General: agitated/confused HEENT: Atraumatic, Normocephalic Neck: 2+ carotid pulse no bruit Respiratory: Normal air movement, 3 LNC Cardiovascular: Normal pulses, RRR, S1 S2 present Capillary refill: <2 Seconds Gastrointestinal: Soft and benign on palpation, No tenderness, mills in place (POA) Musculoskeletal: No clubbing Integumentary: No rashes Neurological: Normal speech, Normal tone Vitals Reviewed Problem list Septic shock secondary to urinary tract infection/bacteremia Hematuria-improving 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 Anemia History of GI bleed Diabetes mellitus Atrial fibrillation on chronic anticoagulation Hypertension Anxiety Assessment and Plan Septic shock secondary to complicated urinary tract infection/bacteremia Mills catheter POA Toxic Encephalopathy 2/2 Sepsis and UTI Hematuria -Continue Merrem and vanc -Mills catheter in place since May 12 from Outside facility -Urine culture growing Enterococcus and Enterobacter -Blood culture growing Enterobacter in all 4 bottles -Case discussed with ID, continue meropenem, may need acetic acid flushes per Mills -Norepinephrine titrate as needed for MAP 65- continued OVN, continue to wean Levophed -Tolerating nasal cannula 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 -Nephrology consulted -Continue Bicarb drip -Nephrology following -Mills catheter in place, present on admission Anemia History of GI bleed -Monitor H&H daily -No signs of active bleeding -Hemoglobin 7.3 this morning with hypotension-will give 1 unit PRBC and IV Lasix Diabetes mellitus -Accu-Chek with sliding scale insulin Atrial fibrillation Hypertension Anxiety -Hold oral anticoagulation given acute anemia/blood transfusion DVT PPx SCDs while anemic DNR LOS 2 to 3 days Discharge Plan: Assisted
[2024-05-27] MEDS: ACETIC ACID 0.25% IRRIG IRR SCH (14:29)
--- NOTE | 2024-05-27 16:14 | CON ---
History Of Present Illness: This is an 88-year-old male. I was consulted for the evaluation of mult idrug resistant Enterococcus faecalis, urinary tract infection and Enterobacter aerogenes bacteremia. The patient is unable to communicate secondary to dementia. [facility] The patient initially came to the hospital with significant past medical history of atrial fibrillation, hypertension, diabetes mellitus, anxiety, anemia, GI bleed, w as admitted from care home for altered mental status where urine culture showed patient has more t garcia 100,000, Enterococcus faecalis and Enterobacter aerogenes bacteremia secondary to Enterobacter ae rogenes. The patient is currently being treated with meropenem. Past Medical History: As per HPI. Social History: Nonsmoker, nondrinker. care home resident. Family History: Noncontributory. Medications: Meropenem. See MAR for other medications. Allergies: NO KNOWN DRUG ALLERGIES. Review of Systems: Unable to obtain. Physical Examination: General: This is 88-year-old male, lying in bed, not in any acute cardiopulmonary distress. Vital Signs: Temperature 98, pulse 96, respirations 20, blood pressure 98/76. HEENT: Unremarkable. Neck: Supple. Lungs: Basal crackles. Heart: S1, S2. Regular. Abdomen: Soft. Bowel sounds present. : Scrotal and penile edematous changes noted. Extremities: 2+ edema also noted with deep tissue injury to both bilateral heels and sacral coccyx a macario with unstageable wound also noted. Laboratory Data: Shows WBC 14,000, down from 25,000; hemoglobin 7.3; platelets are 196. Chemistry s hows BUN of 88, creatinine 4.82. Urinalysis shows more than 50 wbc. Micro data shows more than 100, 000 colonies of Enterobacter aerogenes and an Enterococcus faecalis. Possibly contamination Enteroba cter in blood cultures are also positive from 05/25. Assessment And Plan: An 88-year-old male with multiple medical problems including dementia, altered mental status and diabetes mellitus, coming in with altered mental status, leukocytosis, anemia of ch ronic disease. We will recommend to continue meropenem for a total of 14 days and consider doing ___ bladder flush for 7 days daily. Most likely, Enterococcus faecalis is a contaminant and in t his situation as patient has both Enterobacter in blood and in urine. We will continue to monitor. Thank you, Dr. Iabrra for consult. NF/MODL Voice ID: [id number] Report ID: [id number]
[2024-05-27] MEDS: FUROSEMIDE 40 MG/4 ML VIAL IV SCH (16:35)
[2024-05-27] MEDS ORDERED: FUROSEMIDE 40 MG/4 ML VIAL IV SCH (17:00)
--- NOTE | 2024-05-28 02:55 | PN ---
Date of Progress Note: 05/27/2024 Chief Complaint: Acute kidney injury on chronic kidney disease, severe sepsis, septic shock. Subjective: The patient remains in ICU. He is on pressor. He is an 88-year-old old man, admitted t o ICU for severe hypotension. He was found to have acute kidney injury and is started on diuretics o r anasarca and congestive heart failure. Urine output is gradually improving. Renal panel showed pl ateauing. The patient has history of urinary retention and previously he had a Amezcua catheter placed . The patient is to have Urology consult for catheter replacement. The patient cannot provide revie w of systems. He is lethargic and he has anxiety. Review of Systems: Unobtainable. Physical Examination: Lungs: Clear to auscultation bilaterally. Heart: S1, S2. Abdomen: Soft. Extremities: Edema present in both upper and lower extremity. Assessment And Plan: 1.The patient was found to have urinary tract infection and hematuria. He has Amezcua catheter which was previously placed during previous admission. He is undergoing urology workup. The patient has u rosepsis. Continue antibiotics. 2.Acute kidney injury, remains nonoliguric. Continue Lasix for volume control. The patient has anasarca. 3.Diabetes mellitus. Continue insulin and avoid metformin. EB/MODL Voice ID: [id number] Report ID: [id number]
[2024-05-28 05:01] LABS: Absolute Eosinophils 0.2 K/uL (0-0.5); Absolute Lymphocytes (CBC) 0.4 K/uL (0.7-4.9); Absolute Monocytes 0.9 K/uL (0.1-1.3); Absolute Neutrophil 9.7 K/uL (1.8-8.0); Basophils % 0.3 % (0-1.3); Eosinophils % 1.7 % (0-4.4); Hematocrit 23.3 % (39.6-49.0); Hemoglobin 7.4 g/dL (13.6-17.9); Lymphocytes % 3.4 % (15.3-44.8); MCH 26.4 pg (27.0-35.0); MCHC 31.6 g/dL (32.0-36.0); MCV 83.8 fL (80-100); MPV 7.4 fL (7.6-11.3); Monocytes % 7.8 % (3.3-12.3); Nucleated RBC Absolute Count 0.1 (0-0); Nucleated Red Blood Cells % 0.7 % (0-0); Platelets 130 thou/uL (152-406); RBC Red Blood Cell Count 2.78 M/uL (4.33-5.43); Red Cell Distribution Width 18.8 % (12.1-15.2)
[2024-05-28 05:03] LABS: Neutrophils % 86.8 % (41.7-73.7)
[2024-05-28 05:34] LABS: AST/SGOT 20 U/L (15-37); Albumin 1.4 g/dL (3.4-5.0); Albumin/Globulin Ratio 0.3 (1.1-1.8); Alkaline Phosphatase 184 U/L (45-117); Anion Gap 11.3 mEq/L (5.0-15.0); BUN Blood Urea Nitrogen 92 mg/dL (7-18); Bicarbonate 27 mEq/L (21-32); Bilirubin Total 0.8 mg/dL (0.2-1.0); Globulin 4.5 g/dL (2.3-3.5); Glomerular Filtration Rate 10 ml/min (=/>90); Glucose Level 176 mg/dL (74-106); Phosphorus 5.5 mg/dL (2.5-4.9); Potassium 4.3 mEq/L (3.5-5.1); Protein, Total 5.9 g/dL (6.4-8.2); Sodium Level 137 mEq/L (136-145)
[2024-05-28 05:36] LABS: ALT/SGPT < 14 U/L (16-61)
--- NOTE | 2024-05-28 09:36 | P.PN ---
Date of Service: 05/28/24 Subjective Agitated, confused Weaned levophed since yesterday No acute events overnight family at bedside ROS 10 point ROS as noted above, otherwise negative Physical Exam General: agitated/confused HEENT: Atraumatic, Normocephalic Neck: 2+ carotid pulse no bruit Respiratory: Normal air movement, 3 LNC Cardiovascular: Normal pulses, RRR, S1 S2 present, 2+ edema to summer LE Capillary refill: <2 Seconds Gastrointestinal: Soft and benign on palpation, No tenderness, mills in place (POA), scrotum edematous Musculoskeletal: No clubbing Integumentary: No rashes Neurological: Normal speech, Normal tone Vitals Reviewed Problem list Septic shock secondary to urinary tract infection/bacteremia Hematuria-improving 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 Anemia History of GI bleed Diabetes mellitus Atrial fibrillation on chronic anticoagulation Hypertension Anxiety Assessment and Plan Septic shock secondary to complicated urinary tract infection/bacteremia Mills catheter POA Toxic Encephalopathy 2/2 Sepsis and UTI Hematuria -Continue Merrem -Mills catheter in place since May 12 from Outside facility -Urine culture growing Enterococcus and Enterobacter -Blood culture growing Enterobacter in all 4 bottles -Case discussed with ID, continue meropenem for 2 weeks, started acetic acid flushes per Mills -Norepinephrine titrate as needed for MAP 65- weaned off 05/27 -Tolerating nasal cannula 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 -Nephrology following -Mills catheter in place, present on admission -Mild worsening, BUN elevated -Await further recs, considering HD Anemia History of GI bleed -Monitor H&H daily -No signs of active bleeding -Hemoglobin 7.4 this AM -S/P one unit PRBC 05/27 Diabetes mellitus -Accu-Chek with sliding scale insulin Atrial fibrillation Hypertension Anxiety -Hold oral anticoagulation given acute anemia/blood transfusion -Will start DVT PPX dose heparin subq -Still too risky to use full anticoagulation with ongoing anemia, recent GIB/hematuria DVT PPx heparin subq DNR LOS 3-4 days Discharge Plan: Jail
[2024-05-28] MEDS ORDERED: ALBUMIN HUMAN 25% 12.5 GM, FUROSEMIDE 100 MG in NA CHLORIDE 0.9% 40 ML IV SCH (10:30)
[2024-05-28] MEDS: ALBUMIN HUMAN 25% 12.5 GM, FUROSEMIDE 100 MG in NA CHLORIDE 0.9% 40 ML IV SCH (10:51)
[2024-05-28 14:53] LABS: UR PROTEIN 105.9 mg/dL (<11.9); Urine Protein/Creatinine Ratio 4.81 ratio (<0.15)
--- NOTE | 2024-05-28 15:39 | PN ---
Date of Progress Note: 05/28/2024 Subjective: The patient was admitted with urosepsis, bacteremia, septic shock, acidosis and acute ki dney injury with hematuria. Patient was started with fluid resuscitation. Patient being over volume . The patient started on Levophed, weaned from Levophed today. Physical Examination: Vital Signs: Blood pressure of 125/67, pulse of 81, temperature 97.2. Chest: Crackles bilateral. Heart: S1, S2. Systolic murmur. Extremities: +2 edema. Neuro: The patient is sleepy. Abdomen: Ascites. Laboratory Data: WBC 11.2, hemoglobin 7.4. Sodium 137, potassium 4.3, bicarb 27, BUN 92, creatinine 5, GFR of 10, calcium 8.5, phosphorus 5.5, magnesium 2. Albumin 1.4. TSH 16, cortisol 28. Urinaly sis positive for infection. Urine culture growing Enterococcus faecalis, Enterobacter . Current Medications: The patient on include: 1.Meropenem. 2.Albumin. 3.Tylenol. 4.Lasix. 5.Acetic acid. 6.Bicarb drip. Assessment And Plan: 1.Acute kidney injury, mostly secondary to septic shock, poor perfusion, toxic acute tubular necrosi s with anasarca. Oliguric previous kidney function back in October 2019 1.3, in April 2024, 3.7. GF R of 15. 2.Over volume. Obstructive uropathy has been ruled out. I had long discussion with the patient and family, that kidney function has been worsening and has had elevation in BUN with oliguric and over volume. The patient may need to be initiated on renal replacement therapy. Family on agreement. We will try the patient on Lasix drip given the marginal blood pressure and we will watch for the respo nse. 3.If over the next 24 hours kidney function did not improve, I am going to go ahead and initiate jh al replacement therapy. The patient already n.p.o. 4.Hypertension, currently low blood pressure. Hold all blood pressure medication. 5.Anasarca, multifactorial, secondary to renal failure superimposed with hypothyroidism. I am going to start the patient on levothyroxine and we will monitor. 6.Acidosis secondary to renal failure and sepsis, resolved. Discontinue bicarb drip. 7.Hypoalbuminemia. We will place the patient on Lasix drip with albumin. 8.Septic shock secondary to urosepsis with bacteremia complicated with target organ damage with acut e kidney injury secondary to toxic acute tubular necrosis, poor perfusion acute tubular necrosis. Co ntinue current antibiotic. Follow up with primary. 9.Anemia of chronic kidney disease. Serum protein electrophoresis has been done before and it was n egative. I am going to send for the rest of the anemia workup and we will follow up. Time spent examining the patient [id number], reviewing data, lab and radiology, placing order, disc ussing the case with family, discussing the case with the trampoline team coach including ICU staff and nursing staff more than 55 minutes. MARLON Voice ID: [id number] Report ID: [id number]
[2024-05-28] MEDS: HEPARIN 5000 UNIT/ML 1 ML VIAL SQ SCH (20:39)
[2024-05-29] MEDS: LEVOTHYROXINE SODIUM 100 MCG VIAL IV SCH (05:41)
[2024-05-29 05:47] LABS: Absolute Eosinophils 0.1 K/uL (0-0.5); Absolute Lymphocytes (CBC) 0.4 K/uL (0.7-4.9); Absolute Monocytes 1.1 K/uL (0.1-1.3); Absolute Neutrophil 11.9 K/uL (1.8-8.0); Basophils % 0.3 % (0-1.3); Eosinophils % 0.8 % (0-4.4); Hematocrit 26.3 % (39.6-49.0); Hemoglobin 8.4 g/dL (13.6-17.9); Lymphocytes % 3.2 % (15.3-44.8); MCH 26.8 pg (27.0-35.0); MCHC 31.8 g/dL (32.0-36.0); MCV 84.1 fL (80-100); MPV 7.5 fL (7.6-11.3); Monocytes % 8.3 % (3.3-12.3); Neutrophils % 87.4 % (41.7-73.7); Nucleated RBC Absolute Count 0.1 (0-0); Nucleated Red Blood Cells % 0.5 % (0-0); Percent Reticulocyte Count 0.96 % (0.4-2.05); Platelets 133 thou/uL (152-406); RBC Red Blood Cell Count 3.13 M/uL (4.33-5.43)
[2024-05-29 06:27] LABS: Albumin 1.9 g/dL (3.4-5.0); Albumin/Globulin Ratio 0.4 (1.1-1.8); Anion Gap 14.4 mEq/L (5.0-15.0); Ferritin 188.7 ng/mL (26-388); Globulin 4.7 g/dL (2.3-3.5); Phosphorus 6.7 mg/dL (2.5-4.9); Potassium 4.4 mEq/L (3.5-5.1); Protein, Total 6.6 g/dL (6.4-8.2); Uric Acid 10.8 mg/dL (3.5-7.2)
[2024-05-29 08:51] LABS: Anisocytosis 1+; Blood Morphology Comment NOTED (NOT SEEN); Differential Total Cells Count 100; Hypochromasia 1+; Lymphocytes 1 % (15-42); Microcytosis SLIGHT; Monocytes 7 % (0-10); Nucleated Red Blood Cells 1 /100WBC; Platelet Estimate ADEQ; Segmented Neutrophils 92 % (40-80)
[2024-05-29] MEDS: LORazepam 2 MG/ML VIAL IV PRN (10:55)
[2024-05-29] MEDS: ALBUMIN HUMAN 25% 12.5 GM, FUROSEMIDE 100 MG in NA CHLORIDE 0.9% 40 ML IV SCH ×3 (15:00→20:40)
--- NOTE | 2024-05-29 15:49 | P.PN ---
Date of Service: 05/29/24 Subjective Agitated, confused Weaned levophed since yesterday No acute events overnight family at bedside ROS 10 point ROS as noted above, otherwise negative Physical Exam General: agitated/confused HEENT: Atraumatic, Normocephalic Neck: 2+ carotid pulse no bruit Respiratory: Normal air movement, 3 LNC Cardiovascular: Normal pulses, RRR, S1 S2 present, 2+ edema to summer LE Capillary refill: <2 Seconds Gastrointestinal: Soft and benign on palpation, No tenderness, mills in place (POA), scrotum edematous Musculoskeletal: No clubbing Integumentary: No rashes Neurological: Normal speech, Normal tone Vitals Reviewed Problem list Septic shock secondary to urinary tract infection/bacteremia Hematuria-improving 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 Anemia History of GI bleed Diabetes mellitus Atrial fibrillation on chronic anticoagulation Hypertension Anxiety Assessment and Plan Septic shock secondary to complicated urinary tract infection/bacteremia with chronic mills catheter in place (POA) Toxic Encephalopathy 2/2 Sepsis and UTI Hematuria -Continue Merrem -Mills catheter in place since May 12 from Outside facility -Urine culture growing Enterococcus and Enterobacter -Blood culture growing Enterobacter in all 4 bottles -Case discussed with ID, continue meropenem for 2 weeks, started acetic acid flushes per Mills -Norepinephrine titrate as needed for MAP 65- weaned off 05/27 -Tolerating nasal cannula 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 -Nephrology following -Mills catheter in place, present on admission -Mild worsening, BUN elevated -Await further recs, considering HD -Family discussing possible hospice care, they plan on meeting today at 1800 and getting back to us about preferences Anemia History of GI bleed -Monitor H&H daily -No signs of active bleeding -Hemoglobin stable this AM -S/P one unit PRBC 05/27 Diabetes mellitus -Accu-Chek with sliding scale insulin Atrial fibrillation Hypertension Anxiety -Hold oral anticoagulation given acute anemia/blood transfusion -Will start DVT PPX dose heparin subq -Still too risky to use full anticoagulation with ongoing anemia, recent G IB/hematuria DVT PPx heparin subq DNR LOS 3-4 days Discharge Plan: Retirement
[2024-05-29] MEDS: [UNRECOGNIZED DRUG - OTHER] IV SCH (17:00)
[2024-05-29] MEDS: LIPIDS 20% IV SCH (17:00)
[2024-05-29] MEDS: MULTIVITAMINS IV SCH (17:00)
[2024-05-29] MEDS: NOREPINEPHRINE BITARTRATE/D5W 4 MG/250 ML KIT IV ONE (19:30)
--- NOTE | 2024-05-29 21:34 | PN ---
Date of Progress Note: 05/29/2024 Subjective: The patient was admitted to the hospital with acute kidney injury, cardiorenal with anas arca. The patient was started yesterday on diuresis. Family is thinking about hospice. The patient started having good urine output. Physical Examination: General: When I saw the patient, patient is lying in bed with anasarca. Vital Signs: Blood pressure of 117/60, pulse of 72. Chest: Crackles bilateral. Heart: S1, S2. Systolic murmur. Abdomen: Soft, nontender. Extremities: +3 edema. Neuro: Alert, sleepy. No focality. Laboratory Data: Hemoglobin 8.4, WBC 13.6. Sodium 137, potassium 4, bicarb 25, BUN 97, creatinine 5 .3. GFR of 10. Uric acid 10.8. Calcium 8.8. Phosphorus 6.7. Iron saturation 97, PTH 83. Vitamin D is still pending. PC ratio 4.8. Current Medications: 1.The patient is on Lasix drip on 10 mg per hour. 2.Albumin. 3.Lorazepam. The patient had urine output of 1300, negative of 1300. Assessment And Plan: 1.Acute kidney injury secondary to cardiorenal overvolume. Family decided no aggressive treatment. I am going to go ahead and increase the Lasix drip to 20 mg and we will follow up response. We will hold on any dialysis for the time being. 2.Hypertension. We will utilize blood pressure for more diuresis. Continue Levophed. 3.Acidosis, resolved. 4.Hyperkalemia, resolved. 5.Hyponatremia, dilutional, recovered, resolved. 6.Nephrotic range of proteinuria. Serology is still pending. 7.Secondary hyperparathyroidism. No need for vitamin D. 8.Iron-deficiency anemia. We will hold on starting on any IV iron given the active infection. 9.Urinary tract infection secondary to Enterococcus with bacteremia. Continue current an tibiotic. We will follow up culture. REED/CHICO Voice ID: [id number] Report ID: [id number]
[2024-05-30 06:18] LABS: Absolute Eosinophils 0.2 K/uL (0-0.5); Absolute Lymphocytes (CBC) 0.5 K/uL (0.7-4.9); Absolute Monocytes 0.9 K/uL (0.1-1.3); Absolute Neutrophil 10.2 K/uL (1.8-8.0); Basophils % 0.4 % (0-1.3); Eosinophils % 1.3 % (0-4.4); Hematocrit 25.8 % (39.6-49.0); Hemoglobin 8.1 g/dL (13.6-17.9); Lymphocytes % 4.6 % (15.3-44.8); MCH 26.5 pg (27.0-35.0); MCHC 31.5 g/dL (32.0-36.0); MCV 84.1 fL (80-100); MPV 7.4 fL (7.6-11.3); Monocytes % 7.5 % (3.3-12.3); Neutrophils % 86.2 % (41.7-73.7); Nucleated RBC Absolute Count 0.1 (0-0); Nucleated Red Blood Cells % 0.5 % (0-0); Platelets 108 thou/uL (152-406); RBC Red Blood Cell Count 3.07 M/uL (4.33-5.43); Red Cell Distribution Width 19.3 % (12.1-15.2)
[2024-05-30 06:48] LABS: Albumin 2.6 g/dL (3.4-5.0); Albumin/Globulin Ratio 0.6 (1.1-1.8); Anion Gap 14.1 mEq/L (5.0-15.0); Bilirubin Total 1.1 mg/dL (0.2-1.0); Globulin 4.2 g/dL (2.3-3.5); Magnesium 2.1 mg/dL (1.6-2.4); Phosphorus 7.1 mg/dL (2.5-4.9); Potassium 4.1 mEq/L (3.5-5.1); Protein, Total 6.8 g/dL (6.4-8.2)
[2024-05-30 08:32] LABS: Rheumatoid Factor NEG (NEG)
--- NOTE | 2024-05-30 14:32 | P.PN ---
Date of Service: 05/30/24 Subjective Agitated, confused Weaned levophed No acute events overnight family at bedside, discussing hospice options ROS 10 point ROS as noted above, otherwise negative Physical Exam General: agitated/confused HEENT: Atraumatic, Normocephalic Neck: 2+ carotid pulse no bruit Respiratory: Normal air movement, 3 LNC Cardiovascular: Normal pulses, RRR, S1 S2 present, 2+ edema to summer LE, anasarca Capillary refill: <2 Seconds Gastrointestinal: Soft and benign on palpation, No tenderness, mills in place (POA), scrotum edematous Musculoskeletal: No clubbing Integumentary: No rashes Neurological: Normal speech, Normal tone Vitals Reviewed Problem list Septic shock secondary to urinary tract infection/bacteremia Hematuria-improving 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 Anemia History of GI bleed Diabetes mellitus Atrial fibrillation on chronic anticoagulation Hypertension Anxiety Assessment and Plan Septic shock secondary to complicated urinary tract infection/bacteremia with chronic mills catheter in place (POA) Toxic Encephalopathy 2/2 Sepsis and UTI Hematuria -Continue Merrem -Mills catheter in place since May 12 from Outside facility -Urine culture growing Enterococcus and Enterobacter -Blood culture growing Enterobacter in all 4 bottles -Case discussed with ID, continue meropenem for 2 weeks, started acetic acid flushes per Mills -Norepinephrine titrate as needed for MAP 65- weaned off 05/27 -Tolerating nasal cannula 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 -Nephrology following -Mills catheter in place, present on admission -Mild worsening, BUN elevated -Await further recs, considering HD-family decided against wanting to focus more on comfort -Family discussing possible hospice care, leaning towards home hospice, family to meet with hospice this evening Anemia History of GI bleed -Monitor H&H daily -No signs of active bleeding -Hemoglobin stable this AM -S/P one unit PRBC 05/27 Diabetes mellitus -Accu-Chek with sliding scale insulin Atrial fibrillation Hypertension Anxiety -Hold oral anticoagulation given acute anemia/blood transfusion -Will start DVT PPX dose heparin subq -Still too risky to use full anticoagulation with ongoing anemia, recent GIB/hematuria DVT PPx heparin subq DNR LOS 3-4 days Discharge Plan: Hospice home vs inpatient
[2024-05-30] MEDS ORDERED: LIPIDS 20% IV SCH ×2 (17:00)
[2024-05-30] MEDS ORDERED: MULTIVITAMINS IV SCH ×2 (17:00)
[2024-05-30] MEDS ORDERED: [UNRECOGNIZED DRUG - OTHER] IV SCH ×2 (17:00)
[2024-05-31 00:18] VITALS: O2SAT 100
--- NOTE | 2024-05-31 01:43 | PN ---
Date of Progress Note: 05/30/2024 Subjective: The patient was admitted to the hospital because of acute kidney injury, cardiorenal syn drome, anasarca, hypoxemic respiratory failure, fluid overload. Review of Systems: Unobtainable. The patient has anxiety. He cannot provide review of systems. The patient has altere d mental status. Physical Examination: Lungs: Crackles bilaterally present. Heart: S1, S2. 2/6 systolic murmur, left lower sternal border. Abdomen: Soft, nontender. Extremities: 3+ edema. Laboratory Data: BUN 97, creatinine 5.3, uric acid 10.8, calcium 8.8, phosphorus 6.7, potassium 4, s odium 137, bicarbonate 25. Impression And Plan: 1.Acute kidney injury secondary to cardiorenal syndrome associated with volume overload. The patien t is on Lasix drip. Continue Lasix drip. Family is considering comfort care and do not want the pat ient to start on hemodialysis. 2.Hypertension. Monitor blood pressure. Adjust treatment accordingly. The patient previously requ ired Levophed. 3.Acidosis, resolved. The patient received bicarbonate drip. 4.Hyponatremia, dilutional. 5.Nephrotic range of proteinuria. Serology is pending. 6.Secondary hyperparathyroidism. Monitor blood work. EB/MODL Voice ID: [id number] Report ID: [id number]
[2024-05-31 05:44] LABS: Absolute Basophils 0.2 K/uL (0-0.5); Absolute Eosinophils 0.2 K/uL (0-0.5); Absolute Lymphocytes (CBC) 0.3 K/uL (0.7-4.9); Absolute Monocytes 0.8 K/uL (0.1-1.3); Absolute Neutrophil 13.1 K/uL (1.8-8.0); Eosinophils % 1.1 % (0-4.4); Hematocrit 24.4 % (39.6-49.0); Hemoglobin 7.7 g/dL (13.6-17.9); Lymphocytes % 2.2 % (15.3-44.8); MCH 26.5 pg (27.0-35.0); MCHC 31.6 g/dL (32.0-36.0); MPV 7.7 fL (7.6-11.3); Monocytes % 5.2 % (3.3-12.3); Neutrophils % 90.5 % (41.7-73.7); Nucleated RBC Absolute Count 0.1 (0-0); Nucleated Red Blood Cells % 0.5 % (0-0); Platelets 108 thou/uL (152-406); RBC Red Blood Cell Count 2.91 M/uL (4.33-5.43)
[2024-05-31 06:01] LABS: AST/SGOT 11 U/L (15-37); Albumin/Globulin Ratio 0.8 (1.1-1.8); Alkaline Phosphatase 118 U/L (45-117); Anion Gap 14.7 mEq/L (5.0-15.0); BUN Blood Urea Nitrogen 107 mg/dL (7-18); Bicarbonate 28 mEq/L (21-32); Bilirubin Total 1.2 mg/dL (0.2-1.0); Globulin 3.7 g/dL (2.3-3.5); Glomerular Filtration Rate 9 ml/min (=/>90); Glucose Level 201 mg/dL (74-106); Magnesium 2.1 mg/dL (1.6-2.4); Potassium 3.7 mEq/L (3.5-5.1); Protein, Total 6.7 g/dL (6.4-8.2); Sodium Level 141 mEq/L (136-145)
[2024-05-31 06:02] LABS: ALT/SGPT < 14 U/L (16-61)
[2024-05-31 08:27] LABS: Anisocytosis 1+; Blood Morphology Comment NOTED (NOT SEEN); Hypochromasia 1+; Microcytosis SLIGHT; Platelet Estimate DECR; White Blood Cell Scan OK (OK)
[2024-05-31] MEDS: ALBUMIN HUMAN 25% 12.5 GM, FUROSEMIDE 100 MG in NA CHLORIDE 0.9% 40 ML IV SCH (09:45)
[2024-05-31] MEDS: MORPHINE 2 MG/ML SYR IV PRN (10:28)
[2024-05-31] MEDS ORDERED: INSULIN REGULAR (HUMAN) 100 UNIT/ML SQ SCH (12:00)
[2024-05-31 12:25] VITALS: TEMP 97.3
--- NOTE | 2024-05-31 14:35 | P.PN ---
Date of Service: 05/31/24 Subjective Agitated, confused Weaned levophed No acute events overnight Family has decided on hospice ROS 10 point ROS as noted above, otherwise negative Physical Exam General: agitated/confused HEENT: Atraumatic, Normocephalic Neck: 2+ carotid pulse no bruit Respiratory: Normal air movement, 3 LNC Cardiovascular: Normal pulses, RRR, S1 S2 present, 2+ edema to summer LE, anasarca Capillary refill: <2 Seconds Gastrointestinal: Soft and benign on palpation, No tenderness, mills in place (POA), scrotum edematous Musculoskeletal: No clubbing Integumentary: No rashes Neurological: Normal speech, Normal tone Vitals Reviewed Problem list Septic shock secondary to urinary tract infection/bacteremia Hematuria-improving 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 They have selected [facility] as the company, plan is to have supplies delivered tonight and possible discharge tomorrow morning to home hospice. Aggressive medical therapies have been discontinued, proceeding only with comfort measures.
[2024-05-31] MEDS: LORazepam 2 MG/ML VIAL IV PRN (15:18)
[2024-05-31 16:15] VITALS: BP 116/57
[2024-05-31 20:37] VITALS: BMI 28.9
--- NOTE | 2024-06-01 03:14 | PN ---
Date of Progress Note: 05/31/2024 Subjective: The patient was seen in ICU. The patient is admitted to the hospital because of acute k idney injury, cardiorenal syndrome, anasarca, hypoxemic respiratory failure, fluid overload. He has history of altered mental status, dementia. He is anxious and cannot provide review of systems. Physical Examination: Lungs: Crackles in the bases. Heart: S1, S2. Abdomen: Soft. Extremities: 3+ edema. Impression And Plan: 1.Acute kidney injury secondary to cardiorenal syndrome associated with volume overload. The patien t is on Lasix drip. Blood pressure is more stable. 2.Hypertension. Monitor blood pressure. The patient previously required Levophed. Continue to mon itor blood pressure. 3.Acidosis, resolved. The patient has received bicarbonate drip. Bicarbonate drip is completed. 4.Hyponatremia, dilutional. Monitor electrolytes. Continue Lasix drip. 5.Nephrotic range proteinuria. Serologies pending. EB/MODL Voice ID: [id number] Report ID: [id number]
--- NOTE | 2024-06-01 11:17 | P.DS ---
Admission Date: 05/25/24 Discharge Date: 06/01/24 Disposition: Discharge Condition: Reason for Admission: Severe sepsis with shock Brief History of Present Illness: Richard Hatch is an 88 year old male atrial fibrillation, hypertension, diabetes mellitus, anxiety, anemia, GI bleed who presents to the ED from the longterm with altered mental status. On evaluation in the ED is found to have severe sepsis with shock. SBP 90 with 1 L normal saline bolus. WBC 25.9, lactic 4.6, H&H 7.8/26, sodium 132, potassium 5.3, BUN creatinine 89/4.68, GFR 11, serum glucose 2031, BNP 6008, UA with bacteria. His previous ED visit he was anemic with hemoglobin 5.8, and was transferred for higher level of care to treat GI bleed Richard will be admitted to ICU per hospitalist service for further evaluation and treatment of severe sepsis with shock. 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 His renal function continued to worsen and nephrology discussed initiating hemodialysis. Ultimately family decided against aggressive medical interventions including hemodialysis and opted for hospice. While arranging for outpatient hospice patient while on comfort measures. Vital Signs/Physical Exam: Temp Pulse Resp BP Pulse Ox 97.3 F 93 H 26 H 116/57 L 88 L 05/31/24 16:00 05/31/24 16:00 05/31/24 19:01 05/31/24 16:00 05/31/24 19:01 Laboratory Data at Discharge: WBC 14.50 thou/uL (4.3-10.9) H 05/31/24 05:00 Hgb 7.7 g/dL (13.6-17.9) L 05/31/24 05:00 Hct 24.4 % (39.6-49.0) L 05/31/24 05:00 Plt Count 108 thou/uL (152-406) L 05/31/24 05:00 PT 15.9 SECONDS (9.4-12.5) H 05/25/24 08:52 INR 1.43 05/25/24 08:52 APTT 29.8 SECONDS (24.3-36.9) 05/25/24 08:52 Sodium 141 mEq/L (136-145) 05/31/24 05:00 Potassium 3.7 mEq/L (3.5-5.1) 05/31/24 05:00 BUN 107 mg/dL (7-18) H 05/31/24 05:00 Creatinine 5.53 mg/dL (0.70-1.30) H 05/31/24 05:00 Glucose 201 mg/dL (74-106) H 05/31/24 05:00 Uric Acid 10.8 mg/dL (3.5-7.2) H 05/29/24 05:10 Phosphorus 7.0 mg/dL (2.5-4.9) H 05/31/24 05:00 Magnesium 2.1 mg/dL (1.6-2.4) 05/31/24 05:00 Total Bilirubin 1.2 mg/dL (0.2-1.0) H 05/31/24 05:00 AST 11 U/L (15-37) L 05/31/24 05:00 ALT < 14 U/L (16-61) L 05/31/24 05:00 Alkaline Phosphatase 118 U/L (45-117) H 05/31/24 05:00 Home Medications: Metformin HCl [Metformin ER Osmotic] 1,000 mg PO BID 10/08/12 allopurinoL [Zyloprim*] 300 mg PO DAILY 12/03/14 Pravastatin Sodium [Pravachol] 40 mg PO BEDTIME 12/11/14 Fluticasone [Flonase 50mcg Nasal Freeman] 2 sprays NS BID 05/26/24 Glimepiride 4 mg PO BID 05/26/24 Hydrocodone Bit/Acetaminophen [Hydrocodon-Acetaminoph 7.5-325] 1 each PO BID PRN 05/26/24 Magnesium Oxide [Mag 0X Tab] 400 mg PO DAILY 05/26/24 Metoprolol Succinate [Toprol Xl*] 25 mg PO BEDTIME 05/26/24 Pantoprazole Sodium [Protonix] 40 mg PO DAILY 05/26/24 Rivaroxaban [Xarelto] 15 mg PO BID 05/26/24 Followup: Sandra Pleitez DO, DO [Primary Care Provider] - Time spent managing pt's care (in minutes): 35
[2024-06-01 23:59] LABS: 1,25 Dihydroxy Vitamin D3 34 pg/mL; Vitamin D 1,25-Dihydroxy Total 34 pg/mL (18-72); Vitamin D,1,25-OH2, D2 <8 pg/mL
--- NOTE | 2024-06-02 12:18 | EKG ---
Test Date: 2024-05-25 Test Time: 08:27:23 Rn Staff: AM MEASUREMENT RESULTS: Intervals: Rate: 82 CO: QRSD: 92 QT: 386 QTc: 450 [place]: P: CO: QRS: 93 T: 52 INTERPRETIVE STATEMENTS: Atrial fibrillation Rightward axis Abnormal ECG Compared to ECG 05/01/2024 15:20:34 Right-axis deviation now present Atrial flutter no longer present Prolonged QT interval no longer present Electronically Signed On 06-02-24 12:09:35 [employer] by Sachin Smith
[2024-06-03 09:58] LABS: Anti-Double Strand DNA Antibod 5 IU/mL (<=4)
[2024-06-03 18:28] LABS: P-ANCA Anti-Myeloperoxidase Ab <1.0 AI (<1.0)
[2024-06-04 04:44] LABS: Anti-Nuclear Antibody Screen Positive (Negative)
[2024-06-04 05:11] LABS: Anti-Nuclear Antibody Pattern REPORT
[2024-06-04 15:15] LABS: Complement C3 121 mg/dL (***)
== END 2024-05-31 20:01 | disposition expired | DRG 698 ==
LOC: ER 08:08 → ERHOLD 12:36 → 3RD-ICU 13:41
PROVIDERS: ADMIT Internal Medicine; ATTEND Hospitalist
PROC: 5A09457 Assistance with Respiratory Ventilation, 24-96 Consecutive Hours, Continuous Positive Airway Pressure (ICD-10-PCS; principal; 2024-05-25)
PROC: 3E033XZ Introduction of Vasopressor into Peripheral Vein, Percutaneous Approach (ICD-10-PCS; 2024-05-25)
PROC: 02HV33Z Insertion of Infusion Device into Superior Vena Cava, Percutaneous Approach (ICD-10-PCS; 2024-05-26)
PROC: 30233N1 Transfusion of Nonautologous Red Blood Cells into Peripheral Vein, Percutaneous Approach (ICD-10-PCS; 2024-05-27)
DX: T83.518A Infection and inflammatory reaction due to other urinary catheter, initial encounter (principal); A41.81 Sepsis due to Enterococcus; R65.21 Severe sepsis with septic shock; G92.9 Unspecified toxic encephalopathy; A41.89 Other specified sepsis; N17.0 Acute kidney failure with tubular necrosis; J96.91 Respiratory failure, unspecified with hypoxia; N39.0 Urinary tract infection, site not specified; E87.20 Acidosis, unspecified; Z16.24 Resistance to multiple antibiotics; F03.94 Unspecified dementia, unspecified severity, with anxiety; I13.0 Hypertensive heart and chronic kidney disease with heart failure and stage 1 through stage 4 chronic kidney disease, or unspecified chronic kidney disease; E87.1 Hypo-osmolality and hyponatremia; N25.81 Secondary hyperparathyroidism of renal origin; K92.2 Gastrointestinal hemorrhage, unspecified; I50.9 Heart failure, unspecified; N18.9 Chronic kidney disease, unspecified; E11.22 Type 2 diabetes mellitus with diabetic chronic kidney disease; D63.1 Anemia in chronic kidney disease; I48.91 Unspecified atrial fibrillation; E78.5 Hyperlipidemia, unspecified; E03.9 Hypothyroidism, unspecified; E88.09 Other disorders of plasma-protein metabolism, not elsewhere classified; D50.9 Iron deficiency anemia, unspecified; M10.9 Gout, unspecified; E87.5 Hyperkalemia; L89.626 Pressure-induced deep tissue damage of left heel; L89.616 Pressure-induced deep tissue damage of right heel; L89.156 Pressure-induced deep tissue damage of sacral region; R31.9 Hematuria, unspecified; Z66 Do not resuscitate; Z79.01 Long term (current) use of anticoagulants; Z79.84 Long term (current) use of oral hypoglycemic drugs; Z86.711 Personal history of pulmonary embolism; Z79.899 Other long term (current) drug therapy
CPT/HCPCS: 36415; 36430; 36569; 70450; 71045; 74176; 76377; 80048; 80053; 80069; 81015; 82533; 82550; 82570; 82607; 82652; 82728; 82947; 83520; 83540; 83605; 83735; 83880; 83970; 84100; 84156; 84439; 84443; 84466; 84550; 85018; 85025; 85044; 85610; 85730; 86021; 86038; 86160; 86225; 86430; 86803; 86850; 86900; 86901; 86920; 87040; 87077; 87086; 87088; 87186; 87205; 87804; 92526; 92610; 93005; 94660; 96361; 96365; 96367; 96368; 96375; 97110; 97161; 99291; 99292; J0696; J1644; J1940; J2185; J2270; J3010; J7030; J7040; J7050; J7060; P9016; P9047